=== PATIENT | female | born 1980 | race Caucasian/White ===

== ENCOUNTER 2024-10-12 16:27 | Inpatient (IN) | payer MEDICAID ==
[~2024-10-12] VITALS: Ht 167.6 cm; Wt 62.1 kg
--- NOTE | 2024-10-12 17:08 | ELECTROCARDIOGRAPH REPORT ---
[facility] Test Date: 2024-10-12 Test Time: 16:42:55 Pat Name: KISHOR VARMA Department: EMERGENCY ROOM Room: [place] [address] Gender: F Data Management: : 1980 Requested By: SACHI VALENTIN Order Number: [id number] Reading MD: Dr. Chidi Bonilla Measurements Intervals [place] Rate: 105 P: 72 CO: 126 QRS: 73 QRSD: 77 T: 55 QT: 315 QTc: 417 Interpretive Statements Sinus tachycardia Baseline wander in lead(s) I,II,aVR,aVL,aVF,V2 Electronically Signed On 10-19-2024 21:45:[address] Chidi Bonilla Please click the below link to view image of tracing.
--- NOTE | 2024-10-12 17:14 | Physician Documentation ---
History of Present Illness ~ Chief Complaint: Multiple Medical Complaints Stated Complaint: CELLULITIS Time Seen by MD: 16:40 Primary Medical Doctor: NONE HPI Old female presents to the ED who was a known noncompliant insulin-dependent diabetic from [facility]. She presents after being evaluated for abdominal pain and nausea vomiting likely secondary to her diabetes. She has had left ankle injury times one-week ago and has developed into a diabetic wound with a cellulitis x3 weeks Patient's nausea has been addressed via Compazine and Zofran of pain management has been dress rehab Dilaudid and fentanyl. The patient was started on house Zosyn and vanco and 4 L of normal saline at Tetanus within 5 years?: Yes Medication Reconciliation Allergies: Coded Allergies: aspirin (Verified Allergy, Intermediate, 10/12/24) aluminum (Verified Allergy, Unknown, 10/12/24) Physical Exam Vital Signs: Temperature: 98.1, Source: Oral, Heart Rate: 104, Respiratory Rate: 16, BP: 141/58, Pulse Oximetry: 99, Weight: 62.140 Oxygen Flow Rate: 0 Physical Exam General: Alert, no apparent distress. Gastrointestinal: Soft, nontender, nondistended. Bowels sounds present. Extremities: Normal range of motion, no deformity. Neurologic: Oriented x4. Psychiatric: Normal mood and affect. Skin: Normal color, warm and dry. No edema, no ecchymosis. Progress Results/Orders Results/Orders Orders - ANMOL PAYNE MD ESR (10/12/24 19:52) Medications Received in ER Medications (Trade) Dose Ordered Sig/Breanna Route PRN Reason Start Time Stop Time Status Last Admin Dose Admin Vancomycin HCl 250 ml @ 166 mls/hr Q12H@0700,1900 IV 10/12/24 19:00 10/12/24 19:45 166 MLS/HR (Compazine inj) 10 mg ONCE ONCE IV 10/12/24 18:50 10/12/24 18:51 DC 10/12/24 19:45 10 MG Vital Signs 10/12/24 10/12/24 10/12/24 10/12/24 16:32 16:37 16:37 17:49 Temp 98.1 Pulse 107 104 80 Resp 16 16 16 B/P (MAP) 141/58 141/58 (85) 141/62 (88) Pulse Ox 99 99 99 O2 Flow Rate 0 0 0 10/12/24 10/12/24 10/12/24 18:51 19:00 20:06 Pulse 92 114 Resp 14 14 14 B/P (MAP) 132/63 (86) 142/67 (92) Pulse Ox 99 99 O2 Flow Rate 0 Laboratory Tests Test 10/12/24 16:42 10/12/24 17:28 Glucometer 171 H White Blood Count 14.9 H Red Blood Count 4.51 Hemoglobin 13.8 Hematocrit 41.0 Mean Corpuscular Volume 90.8 Mean Corpuscular Hemoglobin 30.7 Mean Corpuscular Hemoglobin Concent 33.8 Red Cell Distribution Width 14.0 Platelet Count 361 Mean Platelet Volume 8.1 Neutrophils (%) (Auto) 82.6 H Lymphocytes (%) (Auto) 5.5 L Monocytes (%) (Auto) 11.7 Eosinophils (%) (Auto) 0 Basophils (%) (Auto) 0.2 Neutrophils # (Auto) 12.3 H Lymphocytes # (Auto) 0.8 L Monocytes # (Auto) 1.7 H Eosinophils # (Auto) 0.0 Basophils # (Auto) 0.0 CBC Comment Sodium Level 141 Potassium Level 3.5 Chloride Level 107 Carbon Dioxide Level 15.1 L Anion Gap 19 H Blood Urea Nitrogen 8 Creatinine 0.67 Estimated GFR/1.73 m2 > 90 BUN/Creatinine Ratio 11.9 Glucose Level 189 H Lactic Acid Level 1.3 Calcium Level 8.3 L Albumin 2.5 L Procalcitonin 0.07 Chemistry Comments Microbiology Date/Time Source Procedure Growth Status 10/12/24 17:34 Blood Hand Right Blood Culture - Preliminary NEGATIVE (LESS THAN 24 HOURS) Resulted Medical Decision Making Findings this non-Compliant diabetic presents with concerns over osteomyelitis and a worsening infection on her left foot. there may be Clinical correlation between her diabetic foot infection and her ongoing nausea vomiting. Recommending hospitalist admission for evaluation an inpatient IV antibiotics along with potential orthopedic or podiatry evaluation Differential Dx:Considerations: Include: Abscess, Cellulitis, Dressing change, Healing wound, Other Departure Time of Disposition: 20:03 Disposition: 07 LEFT AWOL/ELOPED Admitted to Inpatient Unit: to hospitalist Admission Level of Care: Med/Surg Impression: Primary Impression: Diabetes mellitus Additional Impressions: Uncontrolled diabetes mellitus Ulcer Cellulitis Condition: Stable Education Educated: Patient Educated regarding: diagnosis Additional Comment Additional Comment 7:00 p.m.: Care the patient was transferred to me from nurse practitioner, Sachi Valentin for final disposition for admission. A 10:00 p.m.: Case discussed with the hospitalist/resident, Dr. Agrawal, she will accept the patient for admission. Signature Scribe Signature: t Attestation: The note accurately reflects work and decisions made by me.Sachi Valentin - MARVIN 10/12/24 18:45 SACHI VALENTIN NP October 12, 2024 17:14 ANMOL PAYNE MD October 12, 2024 20:03
[2024-10-12 18:15] LABS: BASOPHILS % (AUTO) 0.2 % (0-1); EOSINOPHILS % (AUTO) 0 % (0-6); HEMOGLOBIN 13.8 g/dl (12.0-16.0); LYMPHOCYTES # (AUTO) 0.8 X10'3 (1.1-4.8); LYMPHOCYTES % (AUTO) 5.5 % (21-51); MEAN CORPUSCULAR HEMOGLOBIN 30.7 PG (27.0-31.0); MEAN CORPUSCULAR HGB CONC 33.8 g/dL (33.0-36.5); MEAN CORPUSCULAR VOLUME 90.8 FL (78-98); MEAN PLATELET VOLUME 8.1 FL (7.4-10.4); MONOCYTES # (AUTO) 1.7 X10'3 (0-0.9); MONOCYTES % (AUTO) 11.7 % (2-12); NEUTROPHILS # (AUTO) 12.3 X10'3 (1.8-7.7); NEUTROPHILS % (AUTO) 82.6 % (42-75); PLATELET COUNT 361 X10'3 (140-440); RED BLOOD COUNT 4.51 X10'6 (4.20-5.60); WHITE BLOOD COUNT 14.9 X10'3 (4.5-11.0)
[2024-10-12 18:29] LABS: ALBUMIN 2.5 G/DL (3.4-5.0); ANION GAP 19 (8-16); BLOOD UREA NITROGEN 8 MG/DL (7-18); BUN/CREATININE RATIO 11.9 (10.0-20.0); CALCIUM 8.3 MG/DL (8.5-10.1); CHLORIDE 107 MMOL/L (99-107); CREATININE 0.67 MG/DL (0.40-0.90); GLUCOSE 189 MG/DL (70-104); POTASSIUM 3.5 MMOL/L (3.5-5.1); SODIUM 141 MMOL/L (135-145); TOTAL CARBON DIOXIDE 15.1 MMOL/L (24-32); eCRCL 101 ML/MIN; eGFR > 90 ML/MIN
[2024-10-12] MEDS: VANCOmycin 1250MG/NS 250ml Bag 250 ML IV SCH (19:45)
[2024-10-12] MEDS: proCHLORperazine 10 MG/2 ml inj IV ONE (19:45)
[2024-10-12 20:26] LABS: C-REACTIVE PROTEIN 31.24 MG/DL (0.0-0.5)
[2024-10-12] MEDS ORDERED: magnesium hydroxide 30ml (MOM) UD suspension PO PRN (20:30)
[2024-10-12] MEDS ORDERED: magnesium sulf-water 4G/100mL 100 ML IV PRN (20:30)
[2024-10-12] MEDS ORDERED: magnesium Cl slow-release 64mg tablet PO PRN (20:30)
[2024-10-12] MEDS ORDERED: potassium Cl 20 mEq SR tablet PO PRN ×2 (20:30)
[2024-10-12] MEDS ORDERED: normal saline 1000ml 1,000 ML IV SCH (20:30)
[2024-10-12] MEDS ORDERED: potassium Cl 40MEQ/1/2NS 520ml 520 ML IV PRN (20:30)
[2024-10-12] MEDS ORDERED: mag hydrox/Alum hydrox/simeth 30ml oral suspension PO PRN (20:30)
[2024-10-12] MEDS ORDERED: acetaminophen 325mg tablet PO PRN (20:30)
[2024-10-12] MEDS ORDERED: magnesium sulf-water 2g/50mL 50 ML IV PRN (20:30)
[2024-10-12] MEDS ORDERED: piperacillin/tazo 3.375gm/50ml 50 ML IV SCH (20:30)
[2024-10-12] MEDS ORDERED: glucagon, human recombinant 1mg kit SUBCUT PRN (20:35)
[2024-10-12] MEDS ORDERED: dextrose 50%-water 50ml dispensing syringe IV PRN ×3 (20:35→22:55)
[2024-10-12] MEDS ORDERED: DEXTROSE 15 GM of carb/4 tabs (each vial/BOTTLE has 4 tablets) PO PRN ×2 (20:35)
[2024-10-12] MEDS ORDERED: insulin glargine (Lantus) pen - multi-dose SQ SCH (21:00)
[2024-10-12] MEDS ORDERED: INSULIN LISPRO 100 UNIT/ML INSULN.PEN MULTI-DOSE SQ SCH (21:00)
[2024-10-12 21:17] LABS: HEMOGLOBIN A1C > 12.0 % (4.5-6.2)
[2024-10-12 21:22] LABS: APTT 33 SECONDS (22-32); INR 1.1 INR; PROTHROMBIN TIME 10.9 SECONDS (9.0-12.0)
[2024-10-12 21:32] LABS: ALBUMIN 2.2 G/DL (3.4-5.0); ANION GAP 20 (8-16); BLOOD UREA NITROGEN 8 MG/DL (7-18); BUN/CREATININE RATIO 11.6 (10.0-20.0); CALCIUM 8.2 MG/DL (8.5-10.1); CHLORIDE 109 MMOL/L (99-107); CREATININE 0.69 MG/DL (0.40-0.90); GLUCOSE 236 MG/DL (70-104); MAGNESIUM 1.5 MG/DL (1.5-2.4); PHOSPHORUS 2.1 MG/DL (2.3-4.5); POTASSIUM 3.6 MMOL/L (3.5-5.1); SODIUM 141 MMOL/L (135-145); eCRCL 98 ML/MIN; eGFR > 90 ML/MIN
[2024-10-12 21:41] LABS: TOTAL CARBON DIOXIDE 12.5 MMOL/L (24-32)
[2024-10-12] MEDS: piperacillin/tazo 4.5gm/100ml 100 ML IV SCH (22:14)
--- NOTE | 2024-10-12 22:25 | HISTORY AND PHYSICAL-Residence ---
History & Physical Providers to CC Resident Creating Document: VIELKA MCCAULEY RES ~ History of Present Illness Primary Medical Doctor: NONE Reason for Admit\Complaint: DKA/left foot cellulitis History of Present Illness The 43-year-old female was transferred from [facility] for higher level of care for the management of left ankle cellulitis. Her friend at the bedside. She mentioned that she started throwing up since last night. Did not notice any blood in it. She also complains of chronic lower abdominal pain. She also has a wound on the lateral surface of left foot. She said she fell about three weeks back and the wound started as a small abrasion which gradually got worse. Now, it is painful, erythematous and also has a necrotic center. Used an antibiotic for the last four days as provided in the ER at [facility]. She is unsure about the name of the medication. She went to [facility] again earlier today after she developed vomitings.. Her bicarb was 11, glucose 376 and urine analysis showed elevated specific gravity and 4+ ketones. She is a known diabetic patient and is not on any medications. She received 10 units insulin regular subQ and 2 L of normal saline boluses at the outside hospital. She was then transferred to [facility] in suspicion of left foot osteomyelitis. Here in the ER, her bicarb 15.1, anion gap 19. She denies any chest pain, shortness of breath, dysuria, constipation or diarrhea. She denies having any PCP and states that she is homeless. Not on any medications at home. Has been smoking one pack of cigarettes per day since she was 18 years and smokes marijuana daily. Allergies: Coded Allergies: aspirin (Verified Allergy, Intermediate, 10/12/24) aluminum (Verified Allergy, Unknown, 10/12/24) Past Medical History Past Medical History Uncontrolled diabetes mellitus Past Surgical History Surgical History Comment Two C-sections, partial bowel resection many years back Past Social History Social History Comment Has been smoking one pack of cigarettes since she was 18 years old. Denied drinking alcohol. Smokes marijuana daily ROS ROS Constitutional: No fever, chills, dizziness, weakness, weight gain or loss Eyes: No pain, erythema, discharge, blurring of vision ENT: No sore throat, epistaxis, tinnitus Cardiovascular: No chest pain, chest pressure, chest discomfort, palpitations, syncope, lower extremity edema, paroxysmal nocturnal dyspnea Respiratory: No shortness of breath, cough, hemoptysis Gastrointestinal: Abdominal pain, nausea and vomiting present. No diarrhea, constipation, hematemesis, bloating, melena or fresh blood Genitourinary: No frequency, urgency, nocturia, hematuria or dysuria Musculoskeletal: No arthralgias or myalgias Integumentary: No change in skin, hair, nails. No swelling, bruising, abrasions Neurologic: No headache, neck pain, numbness or tingling of the extremities, weakness Psychiatric: No delusions, depression, loss of interest in normal activity or change in sleep pattern, hallucinations, suicidal ideations Endocrine: No fatigue, weakness, polydipsia, polyuria, change in appetite, heat or cold intolerance, sweating, dry skin Hematological: No bleeding, petechiae, bruising Allergies: No asthma or urticaria Exam Vitals: Vital Signs Date Time Temp Pulse Resp B/P (MAP) Pulse Ox O2 Delivery O2 Flow Rate FiO2 10/12/24 20:06 114 14 142/67 (92) 99 0 10/12/24 16:32 98.1 General: Alert and oriented x4 HEENT: Normocephalic and atraumatic. Pupils equal round reactive to light and accommodation. Extraocular movements intact. Oral and nasal mucosa moist Neck: Trachea is in midline. No masses or JVD Chest: Bilateral normal breath sounds. No crackles, rhonchi or wheezes Cardiovascular: Tachycardic. Regular rhythm. S1-S2 normal. No rubs or murmurs Abdomen: Tenderness in the hypogastric region. Soft and nondistended. Normoactive bowel sounds Extremities: No cyanosis, clubbing or edema Central Nervous System: No gross sensory or motor deficits. CN II to XII intact Skin: Warm and dry Diagnostic Data Last Recorded Lab Results: 10/12/24 1728 10/12/24 2301 Diagnostic Data: Laboratory Tests Test 10/12/24 20:53 Prothrombin Time 10.9 SECONDS (9.0-12.0) INR International Normalized Ratio 1.1 INR Activated Partial Thromboplast Time 33 SECONDS (22-32) H Coagulation Comments Advance Care Planning Advanced Care plannin - 30 Minutes Additional Plan [id number] DKA Noncompliant with medications for diabetes mellitus Blood glucose level more than 200, elevated anion gap, low bicarb, positive urine ketones in the outside hospital Received 2 L normal saline boluses and 10 units of regular subcu at the outside hospital ER Glucose level more than 200 but less than 250 here at [facility]. Given 5 units of IV regular insulin here. Glucose started to come down close to 200 So, insulin drip not started. Given 2 L ringer lactate boluses Will recheck BMP after the boluses. Will consider starting a bicarb drip if bicarb continues to remain low Recommended bicarb more than 18 Started hyperglycemic/hypoglycemic protocol with Lantus 10 units b.i.d., 5 units of lispro post meal and sliding scale pre meal Start carb controlled diet once anion gap closes Monitor potassium and magnesium and replace as per the protocol Monitor phos level and replace if less than 1.5 Continue maintenance Ringer's lactate at 150 cc/hour Requires diabetic education and nutrition consult Possible sepsis secondary to left foot cellulitis Necrotic center Elevated ESR and CRP MRI left lower extremity ordered to rule out osteomyelitis Started Zosyn 3.375 g IV q.8h and vancomycin Tobacco abuse Strongly recommended to quit tobacco DVT prophylaxis: Lovenox 40 mg subcutaneous daily Vielka Mccauley MD Internal Medicine Resident, PGY 2 Date of Service: October 13, 2024 Billing Provider: BECKA YI MD Common Visit Codes: 58510-[id number] INP/OBS CARE (HIGH) Assessment/Plan Assessment evaluated the patient with the help of residents. discussed the case with them. Reviewed notes by the resident. Agree with their assessments and plans. I also reviewed the patient's records. No additional points at this time VIELKA MCCAULEY RES October 12, 2024 22:25 BECKA YI MD October 13, 2024 04:48
[2024-10-12] MEDS ORDERED: potassium Cl 40MEQ/270ML bag 270 ML IV PRN (22:55)
[2024-10-12] MEDS ORDERED: ringers solution, lacted 1,000 ML IV SCH (22:55)
[2024-10-12] MEDS ORDERED: dextrose 5%-1/2 normal saline 1,000 ML IV SCH (22:55)
[2024-10-12] MEDS ORDERED: Insulin Reg/NS 100units/100mL 100 ML IV SCH (22:55)
[2024-10-12 23:25] LABS: ACETONE SMALL (NEGATIVE)
[2024-10-12 23:27] LABS: ALANINE AMINOTRANSFERASE 10 U/L (12-78); ALBUMIN 2.2 G/DL (3.4-5.0); ALBUMIN/GLOBULIN RATIO 0.5 (1.1-1.5); ALKALINE PHOSPHATASE 81 IU/L (46-116); ANION GAP 19 (8-16); ASPARTATE AMINO TRANSFERASE 11 U/L (10-37); BILIRUBIN,TOTAL 0.8 MG/DL (0.1-1.0); BLOOD UREA NITROGEN 8 MG/DL (7-18); BUN/CREATININE RATIO 11.4 (10.0-20.0); CALCIUM 8.3 MG/DL (8.5-10.1); CHLORIDE 109 MMOL/L (99-107); GLUCOSE 241 MG/DL (70-104); MAGNESIUM 1.5 MG/DL (1.5-2.4); PHOSPHORUS 2.2 MG/DL (2.3-4.5); POTASSIUM 3.8 MMOL/L (3.5-5.1); SODIUM 141 MMOL/L (135-145); TOTAL PROTEIN 6.6 G/DL (6.4-8.2); eCRCL 97 ML/MIN; eGFR > 90 ML/MIN
[2024-10-12 23:31] LABS: TOTAL CARBON DIOXIDE 12.6 MMOL/L (24-32)
[2024-10-12 23:34] LABS: ABG BASE EXCESS -15.1 mmol/L (-2.0-3.0); ABG HCO3 9.6 mmol/L (21.0-28.0); ABG OXYGEN SATURATION 97.8 % (94.0-98.0); ABG PCO2 (T) 20.7 mmHg (32.0-45.0); ABG PH (T) 7.282 (7.350-7.450); ABG PO2 (T) 106.9 mmHg (83.0-108.0); ALLEN'S TEST Modified; FHHb 2.2 % (0.0-5.0); FMetHb 0.3 % (0.0-1.5); FO2Hb 97.5 % (94.0-98.0); PATIENT TEMPERATURE 36.8; TOTAL HEMOGLOBIN 12.7 G/dl (12.0-16.0)
[2024-10-12] MEDS: ringers solution, lacted 1,000 ML IV SCH (23:55)
[2024-10-13] VITALS (8 sets, daily range): BP systolic 102–145; BP diastolic 53–74; PULSE 82–103; RESP 8–23; TEMP 97.4–98.2; O2SAT 96–99
[2024-10-13] MEDS ORDERED: NO HOME MEDS (00:45)
[2024-10-13] MEDS: potassium Cl 40MEQ/1/2NS 520ml 520 ML IV ONE (02:32)
[2024-10-13] MEDS: magnesium sulf-water 2g/50mL 50 ML IV PRN (02:43)
[2024-10-13] MEDS: HYDROcodone/acetaminophen 5mg/325mg tablet PO PRN ×2 (02:45→09:25)
[2024-10-13] MEDS: insulin Lispro (HumaLOG) vial - multi-dose SQ ONE ×2 (02:49→02:55)
[2024-10-13] MEDS: Insulin regular, human (NovoLIN R) inj ONE (02:55)
[2024-10-13] MEDS: insulin glargine (Lantus) pen - multi-dose SQ ONE (02:55)
[2024-10-13] MEDS: insulin regular, human U-100 10ml vial - multi-dose IV ONE ×2 (03:08→05:45)
[2024-10-13] MEDS ORDERED: dextrose 50%-water 50ml dispensing syringe IV PRN ×2 (04:05)
[2024-10-13] MEDS ORDERED: glucagon, human recombinant 1mg kit SUBCUT PRN (04:05)
[2024-10-13] MEDS ORDERED: DEXTROSE 15 GM of carb/4 tabs (each vial/BOTTLE has 4 tablets) PO PRN ×2 (04:05)
[2024-10-13] MEDS: ringers solution, lacted 1,000 ML IV SCH (05:06)
[2024-10-13 05:13] LABS: BASOPHILS % (AUTO) 0.2 % (0-1); EOSINOPHILS % (AUTO) 0.1 % (0-6); HEMATOCRIT 31.7 % (35.0-45.0); HEMOGLOBIN 10.6 g/dl (12.0-16.0); LYMPHOCYTES % (AUTO) 7.2 % (21-51); MEAN CORPUSCULAR HEMOGLOBIN 30.5 PG (27.0-31.0); MEAN CORPUSCULAR HGB CONC 33.5 g/dL (33.0-36.5); MEAN CORPUSCULAR VOLUME 91.1 FL (78-98); MEAN PLATELET VOLUME 7.9 FL (7.4-10.4); MONOCYTES # (AUTO) 1.7 X10'3 (0-0.9); MONOCYTES % (AUTO) 11.9 % (2-12); NEUTROPHILS # (AUTO) 11.5 X10'3 (1.8-7.7); NEUTROPHILS % (AUTO) 80.6 % (42-75); PLATELET COUNT 305 X10'3 (140-440); RED BLOOD COUNT 3.48 X10'6 (4.20-5.60); RED CELL DISTRIBUTION WIDTH 13.9 % (11.5-14.5); WHITE BLOOD COUNT 14.2 X10'3 (4.5-11.0)
[2024-10-13 05:31] LABS: ALANINE AMINOTRANSFERASE 11 U/L (12-78); ALBUMIN 1.8 G/DL (3.4-5.0); ALBUMIN/GLOBULIN RATIO 0.5 (1.1-1.5); ALKALINE PHOSPHATASE 73 IU/L (46-116); ANION GAP 18 (8-16); ASPARTATE AMINO TRANSFERASE 5 U/L (10-37); BILIRUBIN,TOTAL 0.6 MG/DL (0.1-1.0); BLOOD UREA NITROGEN 8 MG/DL (7-18); BUN/CREATININE RATIO 13.3 (10.0-20.0); CALCIUM 7.8 MG/DL (8.5-10.1); CHLORIDE 106 MMOL/L (99-107); CHOL/HDL RATIO 3.3 (0.00-4.99); CHOLESTEROL 141 MG/DL (0-200); GLUCOSE 217 MG/DL (70-104); HDL CHOLESTEROL 43 MG/DL (35-60); LDL CHOLESTEROL 85 MG/DL (50-100); MAGNESIUM 1.5 MG/DL (1.5-2.4); PHOSPHORUS 1.7 MG/DL (2.3-4.5); POTASSIUM 3.2 MMOL/L (3.5-5.1); SODIUM 136 MMOL/L (135-145); TOTAL PROTEIN 5.5 G/DL (6.4-8.2); TRIGLYCERIDES 45 MG/DL (20-135); eCRCL 113 ML/MIN; eGFR > 90 ML/MIN
[2024-10-13 05:40] LABS: TOTAL CARBON DIOXIDE 12.1 MMOL/L (24-32)
[2024-10-13] MEDS: sodium bicarbonate (8.4%) inj. 100 MEQ in dextrose 5%-water 1,000 ML IV SCH (06:56)
[2024-10-13] MEDS: INSULIN LISPRO 100 UNIT/ML INSULN.PEN MULTI-DOSE SQ SCH ×2 (07:00→09:00)
[2024-10-13 07:56] LABS: MAGNESIUM 1.4 MG/DL (1.5-2.4); PHOSPHORUS 1.7 MG/DL (2.3-4.5)
[2024-10-13] MEDS ORDERED: K and/or MAG REPLACEMENT MC SCH (08:00)
[2024-10-13] MEDS: Insulin Reg/NS 100units/100mL 100 ML IV ONE (08:58)
[2024-10-13] MEDS ORDERED: INSULIN LISPRO 100 UNIT/ML INSULN.PEN MULTI-DOSE SQ SCH (09:00)
[2024-10-13 09:54] LABS: ALANINE AMINOTRANSFERASE 14 U/L (12-78); ALBUMIN/GLOBULIN RATIO 0.5 (1.1-1.5); ALKALINE PHOSPHATASE 104 IU/L (46-116); ANION GAP 18 (8-16); ASPARTATE AMINO TRANSFERASE 11 U/L (10-37); BILIRUBIN,TOTAL 0.7 MG/DL (0.1-1.0); BLOOD UREA NITROGEN 7 MG/DL (7-18); BUN/CREATININE RATIO 12.7 (10.0-20.0); CALCIUM 8.1 MG/DL (8.5-10.1); CHLORIDE 103 MMOL/L (99-107); CREATININE 0.55 MG/DL (0.40-0.90); GLUCOSE 239 MG/DL (70-104); MAGNESIUM 1.5 MG/DL (1.5-2.4); PHOSPHORUS 1.8 MG/DL (2.3-4.5); POTASSIUM 3.9 MMOL/L (3.5-5.1); SODIUM 133 MMOL/L (135-145); TOTAL PROTEIN 5.8 G/DL (6.4-8.2); eCRCL 123 ML/MIN; eGFR > 90 ML/MIN
[2024-10-13 10:06] LABS: TOTAL CARBON DIOXIDE 12.2 MMOL/L (24-32)
[2024-10-13] MEDS: dextrose 5%-1/2 normal saline 1,000 ML IV SCH (11:12)
[2024-10-13] MEDS: sodium phosphate inj. 15 MMOL in dextrose 5%-water 250 ML IV PRN (11:21)
[2024-10-13] MEDS: potassium Cl 40MEQ/1/2NS 520ml 520 ML IV PRN (11:33)
[2024-10-13] MEDS: piperacillin/tazo 3.375gm/50ml 50 ML IV SCH (12:05)
--- NOTE | 2024-10-13 13:20 | RADIOLOGY REPORT ---
Indication: wound on left ankle three view requested per Dr Dudley Technique: 4 views left ankle Comparison: None FINDINGS/IMPRESSION: No radiographic evidence for acute fracture or dislocation. Soft tissue edema surrounding the latera l malleolus. Anterior left ankle, dorsal left foot soft tissue edema. Achilles enthesopathy.
[2024-10-13 13:32] LABS: ALANINE AMINOTRANSFERASE 14 U/L (12-78); ALBUMIN 1.8 G/DL (3.4-5.0); ALBUMIN/GLOBULIN RATIO 0.5 (1.1-1.5); ALKALINE PHOSPHATASE 95 IU/L (46-116); ANION GAP 12 (8-16); ASPARTATE AMINO TRANSFERASE 9 U/L (10-37); BILIRUBIN,TOTAL 0.6 MG/DL (0.1-1.0); BLOOD UREA NITROGEN 6 MG/DL (7-18); BUN/CREATININE RATIO 12.2 (10.0-20.0); CALCIUM 7.9 MG/DL (8.5-10.1); CHLORIDE 106 MMOL/L (99-107); CREATININE 0.49 MG/DL (0.40-0.90); GLUCOSE 145 MG/DL (70-104); MAGNESIUM 2.2 MG/DL (1.5-2.4); PHOSPHORUS 1.7 MG/DL (2.3-4.5); POTASSIUM 3.4 MMOL/L (3.5-5.1); SODIUM 134 MMOL/L (135-145); TOTAL CARBON DIOXIDE 16.4 MMOL/L (24-32); TOTAL PROTEIN 5.5 G/DL (6.4-8.2); eCRCL 139 ML/MIN; eGFR > 90 ML/MIN
[2024-10-13] MEDS: insulin glargine (Lantus) pen - multi-dose SQ SCH (15:09)
[2024-10-13] MEDS: ondansetron/PF 4mg/2ml inj IV PRN (17:06)
[2024-10-13] MEDS: normal saline 1000ml 1,000 ML IV SCH (17:27)
--- NOTE | 2024-10-13 18:53 | PROGRESS NOTE ---
Daily Progress Note Providers to CC ~ Antibiotic Timeout Antibiotic Ordered?: Yes Subjective Patient complaining of ankle pain 12/08 Objective Vital Signs Date Time Temp Pulse Resp B/P (MAP) Pulse Ox O2 Delivery O2 Flow Rate FiO2 10/13/24 17:52 16 10/13/24 15:00 97.5 90 131/57 (81) 97 Room Air 10/13/24 08:00 0.0 Result Diagram: 10/13/24 0500 10/13/24 1308 In bed in nonacute distress HEENT normal oral mucosa no JVD Lungs with normal bilateral entry no crackles no wheezing Heart normal rate and rhythm S1-S2 Abdomen is soft nontender bowel sounds are present Extremities no edema plus two pulses Open wound on the external aspect of the left ankle with necrotic tissue Awake and alert motor and sensory intact Coagulation Studies Laboratory Tests Test 10/12/24 20:53 Prothrombin Time 10.9 SECONDS (9.0-12.0) INR International Normalized Ratio 1.1 INR Activated Partial Thromboplast Time 33 SECONDS (22-32) H Coagulation Comments Problem\Assessment\Plan Patient has a left ankle wound covered with necrotic tissue; orthopedic evaluation; on vancomycin and Zosyn; pain management Patient has a history of diabetes mellitus type 1 was found to be in DKA; t reated per protocol this morning with IV fluid supplementation and insulin drip; anion gap has closed and is started on insulin Lantus; Hypokalemia supplement per protocol Anemia monitor 40 minutes of critical care time spent in the care of the patient Date of Service: October 13, 2024 Billing Provider: VIKTORIYA RUBIO MD Common Visit Codes: [id number] CARE 30-74 MIN VIKTORIYA RUBIO MD October 13, 2024 18:53
[2024-10-13] MEDS: enoxaparin 40mg/0.4ml syringe SQ SCH (19:18)
--- NOTE | 2024-10-13 19:52 | CONSULTATION REPORT ---
History of Present Illness Providers to CC ~ Reason for Admit\Admit Dx: DKA/left foot cellulitis Refering MD: NONE History of Present Illness The 43-year-old female was transferred from [facility] for higher level of care for the management of left ankle cellulitis. Nurse at bedside. She mentioned that she started throwing up night before admission. Did not notice any blood in it. She also complains of chronic lower abdominal pain. She also has a wound on the lateral surface of left foot. She said she fell about three weeks back and the wound started as a small abrasion which gradually got worse. Now, it is painful, erythematous and also has a necrotic center. Used an antibiotic for the last four days as provided in the ER at [facility]. She is unsure about the name of the medication. She went to [facility] again earlier today after she developed vomitings.. Her bicarb was 11, glucose 376 and urine analysis showed elevated specific gravity and 4+ ketones. She is a known diabetic patient and is not on any medications. She received 10 units insulin regular subQ and 2 L of normal saline boluses at the outside hospital. She was then transferred to [facility] in suspicion of left foot osteomyelitis. Here in the ER, her bicarb 15.1, anion gap 19. She denies any chest pain, shortness of breath, dysuria, constipation or diarrhea. She denies having any PCP and states that she is homeless. Not on any medications at home. Has been smoking one pack of cigarettes per day since she was 18 years and smokes marijuana daily. Today patient was supposed to get a Left foot MRI but went into DKA per nurse. Allergies: Coded Allergies: aspirin (Verified Allergy, Intermediate, 10/12/24) aluminum (Verified Allergy, Unknown, 10/12/24) Home Medications Home Medications Active Reported No Home Medications (Home Med List) Each Physical Exam Last Vital Signs Recorded: Temperature: 97.5, Source: Oral, Heart Rate: 90, Respiratory Rate: 16, BP: 131/57, Pulse Oximetry: 97, Weight: 62.140 Extremities LLE foot: Lateral dorsal midfoot is globally erythematous and edematous. Blistering and central eschar with boggy fullness under skin with pupuric surroundings. No tunneling, no active purlunt infeciton. Pain with palpation. Xrays: unremarkable MRI pending. Results Diagram Lab Result Diagram: 10/13/24 0500 10/13/24 1308 Assessment/Plan Additional Plan Sickly looking 43F with high clinical suspicion of abcess formation within the left foot. Patient is DM and host of other medical comorbidities with mgmt with medicine team. Patient will need surgical InD with possibel staged delayed closure and washout. Xray reviwed, largely unremarkable, no gas appreciated. - Planning for possible InD tomorrow - NPO after 7am - Pending MRI to aid Surgical guidance. - Rec cont Abx therapy - Cont betadine WTD dressings Patient seen with DESHAWN Edwards DPM October 13, 2024 19:52
[2024-10-13 20:23] LABS: ALANINE AMINOTRANSFERASE 14 U/L (12-78); ALBUMIN 1.8 G/DL (3.4-5.0); ALBUMIN/GLOBULIN RATIO 0.5 (1.1-1.5); ALKALINE PHOSPHATASE 95 IU/L (46-116); ANION GAP 12 (8-16); ASPARTATE AMINO TRANSFERASE 10 U/L (10-37); BILIRUBIN,TOTAL 0.7 MG/DL (0.1-1.0); BLOOD UREA NITROGEN 5 MG/DL (7-18); BUN/CREATININE RATIO 11.6 (10.0-20.0); CALCIUM 7.6 MG/DL (8.5-10.1); CHLORIDE 105 MMOL/L (99-107); CREATININE 0.43 MG/DL (0.40-0.90); GLUCOSE 164 MG/DL (70-104); MAGNESIUM 1.8 MG/DL (1.5-2.4); PHOSPHORUS 1.6 MG/DL (2.3-4.5); POTASSIUM 3.3 MMOL/L (3.5-5.1); SODIUM 134 MMOL/L (135-145); TOTAL CARBON DIOXIDE 17.2 MMOL/L (24-32); TOTAL PROTEIN 5.5 G/DL (6.4-8.2); eCRCL 158 ML/MIN; eGFR > 90 ML/MIN
[2024-10-13 21:18] LABS: ALANINE AMINOTRANSFERASE 15 U/L (12-78); ALBUMIN 1.9 G/DL (3.4-5.0); ALBUMIN/GLOBULIN RATIO 0.5 (1.1-1.5); ALKALINE PHOSPHATASE 102 IU/L (46-116); ANION GAP 13 (8-16); ASPARTATE AMINO TRANSFERASE 10 U/L (10-37); BILIRUBIN,TOTAL 0.8 MG/DL (0.1-1.0); BLOOD UREA NITROGEN 5 MG/DL (7-18); BUN/CREATININE RATIO 11.9 (10.0-20.0); CALCIUM 7.7 MG/DL (8.5-10.1); CHLORIDE 104 MMOL/L (99-107); CREATININE 0.42 MG/DL (0.40-0.90); GLUCOSE 172 MG/DL (70-104); MAGNESIUM 1.8 MG/DL (1.5-2.4); PHOSPHORUS 1.6 MG/DL (2.3-4.5); POTASSIUM 3.3 MMOL/L (3.5-5.1); SODIUM 133 MMOL/L (135-145); TOTAL CARBON DIOXIDE 16.1 MMOL/L (24-32); TOTAL PROTEIN 5.6 G/DL (6.4-8.2); eCRCL 162 ML/MIN; eGFR > 90 ML/MIN
[2024-10-13] MEDS: normal saline 1000ml 1,000 ML IV ONE (23:16)
[2024-10-13 23:31] LABS: ALANINE AMINOTRANSFERASE 16 U/L (12-78); ALBUMIN 1.8 G/DL (3.4-5.0); ALBUMIN/GLOBULIN RATIO 0.5 (1.1-1.5); ALKALINE PHOSPHATASE 98 IU/L (46-116); ANION GAP 14 (8-16); ASPARTATE AMINO TRANSFERASE 7 U/L (10-37); BILIRUBIN,TOTAL 0.7 MG/DL (0.1-1.0); BLOOD UREA NITROGEN 5 MG/DL (7-18); BUN/CREATININE RATIO 11.4 (10.0-20.0); CALCIUM 7.6 MG/DL (8.5-10.1); CHLORIDE 104 MMOL/L (99-107); CREATININE 0.44 MG/DL (0.40-0.90); GLUCOSE 186 MG/DL (70-104); MAGNESIUM 1.9 MG/DL (1.5-2.4); PHOSPHORUS 1.6 MG/DL (2.3-4.5); POTASSIUM 3.5 MMOL/L (3.5-5.1); SODIUM 135 MMOL/L (135-145); TOTAL CARBON DIOXIDE 16.9 MMOL/L (24-32); TOTAL PROTEIN 5.5 G/DL (6.4-8.2); eCRCL 154 ML/MIN; eGFR > 90 ML/MIN
[2024-10-14] MEDS: proCHLORperazine 10 MG/2 ml inj IV ONE (00:34)
[2024-10-14] MEDS: INSULIN LISPRO 100 UNIT/ML INSULN.PEN MULTI-DOSE SQ ONE ×2 (01:32→04:27)
[2024-10-14] MEDS: metoclopramide 5 mg/ml inj IV ONE (01:51)
[2024-10-14 02:00] VITALS: BP 149/97; PULSE 111; RESP 20; TEMP 97.7; O2SAT 98
[2024-10-14 04:04] LABS: ALANINE AMINOTRANSFERASE 20 U/L (12-78); ALBUMIN 2.2 G/DL (3.4-5.0); ALBUMIN/GLOBULIN RATIO 0.5 (1.1-1.5); ALKALINE PHOSPHATASE 126 IU/L (46-116); ANION GAP 18 (8-16); ASPARTATE AMINO TRANSFERASE 17 U/L (10-37); BILIRUBIN,TOTAL 0.9 MG/DL (0.1-1.0); BLOOD UREA NITROGEN 5 MG/DL (7-18); BUN/CREATININE RATIO 10.4 (10.0-20.0); CHLORIDE 103 MMOL/L (99-107); CREATININE 0.48 MG/DL (0.40-0.90); GLUCOSE 216 MG/DL (70-104); MAGNESIUM 1.8 MG/DL (1.5-2.4); POTASSIUM 3.3 MMOL/L (3.5-5.1); SODIUM 135 MMOL/L (135-145); TOTAL PROTEIN 6.6 G/DL (6.4-8.2); eCRCL 141 ML/MIN; eGFR > 90 ML/MIN
[2024-10-14 04:33] LABS: PHOSPHORUS 1.2 MG/DL (2.3-4.5); TOTAL CARBON DIOXIDE 14.4 MMOL/L (24-32)
[2024-10-14] MEDS ORDERED: potassium phosphate inj 30 MMOL in normal saline 250ml IV soln 250 ML IV ONE (04:40)
[2024-10-14] MEDS: sodium phosphate in D5W IVPB 250 ML IV ONE (05:11)
[2024-10-14] MEDS: sodium phosphate inj. 30 MMOL in dextrose 5%-water 250 ML IV PRN (05:18)
[2024-10-14] MEDS: potassium Cl 40MEQ/1/2NS 520ml 520 ML IV ONE (05:21)
[2024-10-14] MEDS: SODIUM PHOSPHATE IN D5W 250 ML IV ONE (05:22)
[2024-10-14] MEDS: sodium bicarbonate 1meq/ml inj 150 ML in sodium chloride 0.45% 1,000 ML IV SCH (05:47)
[2024-10-14 06:00] VITALS: BP 179/96; PULSE 101; RESP 18; TEMP 97.5; O2SAT 99
[2024-10-14] MEDS: hydrALAZINE 20mg/ml inj. IV ONE (06:05)
[2024-10-14] MEDS: VANCOMYCIN LEVEL IV ONE (06:30)
[2024-10-14 06:54] LABS: BASOPHILS % (AUTO) 0.1 % (0-1); EOSINOPHILS % (AUTO) 0 % (0-6); HEMATOCRIT 38.1 % (35.0-45.0); HEMOGLOBIN 13.1 g/dl (12.0-16.0); LYMPHOCYTES # (AUTO) 0.6 X10'3 (1.1-4.8); LYMPHOCYTES % (AUTO) 3.9 % (21-51); MEAN CORPUSCULAR HEMOGLOBIN 30.9 PG (27.0-31.0); MEAN CORPUSCULAR HGB CONC 34.5 g/dL (33.0-36.5); MEAN CORPUSCULAR VOLUME 89.8 FL (78-98); MEAN PLATELET VOLUME 7.8 FL (7.4-10.4); MONOCYTES # (AUTO) 1.1 X10'3 (0-0.9); MONOCYTES % (AUTO) 7.2 % (2-12); NEUTROPHILS # (AUTO) 13.9 X10'3 (1.8-7.7); NEUTROPHILS % (AUTO) 88.8 % (42-75); PLATELET COUNT 400 X10'3 (140-440); RED BLOOD COUNT 4.25 X10'6 (4.20-5.60); RED CELL DISTRIBUTION WIDTH 13.8 % (11.5-14.5); WHITE BLOOD COUNT 15.6 X10'3 (4.5-11.0)
[2024-10-14 07:06] LABS: VANCOMYCIN,TROUGH 7.6 ug/mL (10.0-20.0)
[2024-10-14 07:53] LABS: ALBUMIN 2.2 G/DL (3.4-5.0); ANION GAP 18 (8-16); BLOOD UREA NITROGEN 6 MG/DL (7-18); BUN/CREATININE RATIO 12.5 (10.0-20.0); CALCIUM 8.3 MG/DL (8.5-10.1); CHLORIDE 103 MMOL/L (99-107); CREATININE 0.48 MG/DL (0.40-0.90); GLUCOSE 216 MG/DL (70-104); POTASSIUM 3.2 MMOL/L (3.5-5.1); SODIUM 135 MMOL/L (135-145); eCRCL 141 ML/MIN; eGFR > 90 ML/MIN
[2024-10-14 08:22] LABS: TOTAL CARBON DIOXIDE 14.5 MMOL/L (24-32)
[2024-10-14 11:00] VITALS: BP 159/80; PULSE 112; RESP 27; TEMP 97.3; O2SAT 95
--- NOTE | 2024-10-14 13:16 | RADIOLOGY REPORT ---
EXAM: MR MRI LOWER EXTREMITY LEFT HISTORY: rule out osteomylitis left foot COMPARISON: Radiograph dated 10/13/2024 TECHNIQUE: Multiplanar, multisequence MRI was performed. FINDINGS: An ulcer seen in the lateral aspect of the foot at the level of the calcaneocuboid joint skin thicken ing and subcutaneous edema without underlying cortical erosion or bone marrow edema. Joint spaces are maintained . No joint effusion. The flexor with no evidence of tenosynovitis. The medial lateral li gamentous complexes are intact. The Achilles tendon is intact. Plantar fascia is grossly unremarkable but suboptimally evaluated due to motion degradation. IMPRESSION: 1. Large ulcer in the lateral aspect of the calcaneocuboid joint with extensive surrounding celluliti s without signs of underlying osteomyelitis or septic joint.
[2024-10-14] MEDS: LIDOcaine 1% 30ml preserv. free vial IJ STA (13:17)
--- NOTE | 2024-10-14 13:25 | PROGRESS NOTE ---
Progress Note Ortho Ortho Post Op Day #: Other Follow Up Progress Note patient was seen at bedside again this early afternoon, She is more alert, complaining of vomiting and nausea ROS ROS No new complaints Exam Exam: Alert and Oreinted x4 Exam Comments the left foot appears worse, more erythema, there is more demaracation of the ischemic areas, there is mild fluctuance on palpation, no crepitus on palpation, pulses are palpable Problem/Assessment/Plan Additional Plan Patient was evaluated, the MRI was independently reviewed and discussed with the patient, I did not see bone or joint involvement. I discussed the need for an I&D to the foot and ankle and the possibility of a bedside I&D due to the patient being too unstable for anesthesia. This decision was made with the patient and the risks and benefits were described with the patient. I consulted Wound care as well for application and management of negative pressure wound vac therapy Right foot I&D We received verbal and written consent from the patient today The foot and ankle was sterilized The foot received an ankle anesthetic block with lidocaine, approx 30cc of 1% lidocaine plain and after anesthesia was achieved then we proceeded with the procedure. The foot was prepped and draped in a sterile fashion. After appropriate anesthesia, we then performed an incision and drainage of the wound of the lateral foot. A 15 blade was used to remove the necrotic ischemic skin and we carefully dissected down to the level of subcutaneous and deep fascia tissue. There was a large amount of purulent drainage that we cultured. 3 Wound cultures were then taken and sent for anaerobic and aerobic gram stain and C&S. We then explored multiple regions, there was tracking to a proximal region where an accessory incision was made. After all areas of tracking were explored and all purulent drainage was removed and non viable tissue excised, we then flushed with copious amounts of sterile saline and betadine solution. There was exposed muscle and nerves noted. There was an appearance of healthy wound bed when we were done. A wound vac was applied with 125mmHG negative continuous pressure by wound care. Patient tolerated the procedure well. Wound vac change ordered for POD#5 and then every three days after that. Appreciate recs from wound care team as well. I am leaving town for the week beginning tomorrow, Please reach out to me by my cell phone for further instructions [phone] as needed or call fellow Dr. Ureña for further questions if I don't answer. Results/Orders Result Diagram: 10/14/24 0638 10/14/24 0638 PAMELA VELASCO DPM October 14, 2024 13:25
[2024-10-14 13:45] LABS: ALANINE AMINOTRANSFERASE 22 U/L (12-78); ALBUMIN 2.3 G/DL (3.4-5.0); ALBUMIN/GLOBULIN RATIO 0.4 (1.1-1.5); ALKALINE PHOSPHATASE 143 IU/L (46-116); ANION GAP 21 (8-16); BLOOD UREA NITROGEN 6 MG/DL (7-18); BUN/CREATININE RATIO 11.8 (10.0-20.0); CALCIUM 8.3 MG/DL (8.5-10.1); CHLORIDE 101 MMOL/L (99-107); CREATININE 0.51 MG/DL (0.40-0.90); GLUCOSE 246 MG/DL (70-104); MAGNESIUM 1.9 MG/DL (1.5-2.4); SODIUM 136 MMOL/L (135-145); TOTAL PROTEIN 7.5 G/DL (6.4-8.2); eCRCL 133 ML/MIN; eGFR > 90 ML/MIN
[2024-10-14 13:47] LABS: ASPARTATE AMINO TRANSFERASE 22 U/L (10-37); PHOSPHORUS 2.4 MG/DL (2.3-4.5); POTASSIUM 3.6 MMOL/L (3.5-5.1)
[2024-10-14 13:50] LABS: TOTAL CARBON DIOXIDE 14.3 MMOL/L (24-32)
[2024-10-14 15:00] VITALS: BP 164/95; PULSE 120; RESP 29; TEMP 97.8; O2SAT 98
[2024-10-14] MEDS: Insulin Reg/NS 100units/100mL 100 ML IV SCH (15:08)
[2024-10-14] MEDS: ringers solution, lacted 1,000 ML IV SCH (15:15)
[2024-10-14] MEDS: vancomycin/NS 1 GM ADD-VANTAGE 250 ML IV SCH (15:25)
[2024-10-14 16:01] LABS: ABG BASE EXCESS -10.6 mmol/L (-2.0-3.0); ABG HCO3 11.5 mmol/L (21.0-28.0); ABG OXYGEN SATURATION 97.6 % (94.0-98.0); ABG PCO2 (T) 18.9 mmHg (32.0-45.0); ABG PH (T) 7.401 (7.350-7.450); ABG PO2 (T) 89.9 mmHg (83.0-108.0); ALLEN'S TEST POSITIVE; FCOHb 0.9 % (0.5-1.5); FHHb 2.4 % (0.0-5.0); FMetHb 0.3 % (0.0-1.5); FO2Hb 96.4 % (94.0-98.0); MODE ROOM AIR; TOTAL HEMOGLOBIN 14.5 G/dl (12.0-16.0)
[2024-10-14] MEDS ORDERED: potassium Cl 20 mEq SR tablet PO PRN (16:15)
[2024-10-14 17:19] LABS: MAGNESIUM 1.9 MG/DL (1.5-2.4); PHOSPHORUS 1.5 MG/DL (2.3-4.5)
[2024-10-14 17:31] LABS: POTASSIUM 2.7 MMOL/L (3.5-5.1)
[2024-10-14 18:00] VITALS: BP 147/78; PULSE 112; RESP 15; TEMP 97.7; O2SAT 99
[2024-10-14] MEDS: proMETHazine 25mg tablet PO ONE (18:18)
[2024-10-14] MEDS: GADOTERATE MEGLUMINE 7.5 MMOL/15 ML VIAL IV ONE (18:26)
--- NOTE | 2024-10-14 19:44 | PROGRESS NOTE ---
Daily Progress Note Providers to CC ~ Antibiotic Timeout Antibiotic Ordered?: Yes Subjective Pain is better controlled; she has been nauseous and unable to eat Objective Vital Signs Date Time Temp Pulse Resp B/P (MAP) Pulse Ox O2 Delivery O2 Flow Rate FiO2 10/14/24 15:00 97.8 120 29 164/95 (118) 98 Room Air 10/13/24 20:00 0.0 Result Diagram: 10/14/24 0638 10/14/24 1646 In bed in nonacute distress HEENT normal oral mucosa no JVD Lungs with normal bilateral entry no crackles no wheezing Heart normal rate and rhythm S1-S2 Abdomen is soft nontender bowel sounds are present Extremities no edema plus two pulses Open wound on the external aspect of the left ankle with necrotic tissue Awake and alert motor and sensory intact Coagulation Studies Laboratory Tests Test 10/12/24 20:53 Prothrombin Time 10.9 SECONDS (9.0-12.0) INR International Normalized Ratio 1.1 INR Activated Partial Thromboplast Time 33 SECONDS (22-32) H Coagulation Comments Problem\Assessment\Plan Patient has a left ankle wound covered with necrotic tissue; orthopedic evaluation; on vancomycin and Zosyn; pain management Patient has a history of diabetes mellitus type 1 was found to be in DKA; t reated per protocol this morning with IV fluid supplementation and insulin drip; anion gap has closed and is started on insulin Lantus; 10/14 due to the persistent nausea and vomiting patient reversed into DKA; patient is started back on IV fluids and IV insulin; she will need to stay on IV insulin till her nausea resolves Persistent nausea; symptomatic treatment; gastroparesis? Hypokalemia supplement per protocol Anemia monitor 40 minutes of critical care time spent in the care of the patient Date of Service: October 14, 2024 Billing Provider: VIKTORIYA RUBIO MD Common Visit Codes: [id number] CARE 30-74 MIN VIKTORIYA RUBIO MD October 14, 2024 19:44
[2024-10-14] MEDS: insulin Lispro (HumaLOG) vial - multi-dose SQ ONE (21:51)
[2024-10-14 22:00] VITALS: BP 138/74; PULSE 122; RESP 27; TEMP 97.5; O2SAT 99
[2024-10-14 23:49] LABS: ALANINE AMINOTRANSFERASE 19 U/L (12-78); ALBUMIN 2.1 G/DL (3.4-5.0); ALBUMIN/GLOBULIN RATIO 0.4 (1.1-1.5); ALKALINE PHOSPHATASE 131 IU/L (46-116); ANION GAP 18 (8-16); ASPARTATE AMINO TRANSFERASE 17 U/L (10-37); BILIRUBIN,TOTAL 0.9 MG/DL (0.1-1.0); BLOOD UREA NITROGEN 5 MG/DL (7-18); BUN/CREATININE RATIO 8.6 (10.0-20.0); CALCIUM 8.4 MG/DL (8.5-10.1); CHLORIDE 104 MMOL/L (99-107); CREATININE 0.58 MG/DL (0.40-0.90); GLUCOSE 196 MG/DL (70-104); MAGNESIUM 1.9 MG/DL (1.5-2.4); PHOSPHORUS 1.3 MG/DL (2.3-4.5); SODIUM 138 MMOL/L (135-145); TOTAL CARBON DIOXIDE 15.6 MMOL/L (24-32); TOTAL PROTEIN 6.9 G/DL (6.4-8.2); eCRCL 117 ML/MIN; eGFR > 90 ML/MIN
[2024-10-14 23:53] LABS: POTASSIUM 3.7 MMOL/L (3.5-5.1)
[2024-10-15] VITALS (8 sets, daily range): BP systolic 122–151; BP diastolic 74–86; PULSE 53–119; RESP 15–30; TEMP 97.1–98; O2SAT 90–99
[2024-10-15] MEDS: SODIUM PHOSPHATE IN D5W 250 ML IV ONE (01:01)
[2024-10-15] MEDS: proMETHazine 25mg tablet PO PRN (01:02)
[2024-10-15 05:30] LABS: ALANINE AMINOTRANSFERASE 16 U/L (12-78); ALBUMIN 1.6 G/DL (3.4-5.0); ALBUMIN/GLOBULIN RATIO 0.4 (1.1-1.5); ALKALINE PHOSPHATASE 111 IU/L (46-116); ANION GAP 12 (8-16); ASPARTATE AMINO TRANSFERASE 11 U/L (10-37); BILIRUBIN,TOTAL 0.6 MG/DL (0.1-1.0); BLOOD UREA NITROGEN 4 MG/DL (7-18); BUN/CREATININE RATIO 9.1 (10.0-20.0); CALCIUM 7.6 MG/DL (8.5-10.1); CHLORIDE 107 MMOL/L (99-107); CREATININE 0.44 MG/DL (0.40-0.90); GLUCOSE 172 MG/DL (70-104); MAGNESIUM 1.7 MG/DL (1.5-2.4); SODIUM 139 MMOL/L (135-145); TOTAL CARBON DIOXIDE 19.6 MMOL/L (24-32); TOTAL PROTEIN 5.7 G/DL (6.4-8.2); eCRCL 154 ML/MIN; eGFR > 90 ML/MIN
[2024-10-15 05:34] LABS: POTASSIUM 2.8 MMOL/L (3.5-5.1)
[2024-10-15 05:47] LABS: BASOPHILS # (AUTO) 0.1 X10'3 (0-0.2); BASOPHILS % (AUTO) 0.3 % (0-1); EOSINOPHILS % (AUTO) 0 % (0-6); HEMOGLOBIN 14.2 g/dl (12.0-16.0); LYMPHOCYTES # (AUTO) 0.9 X10'3 (1.1-4.8); MEAN CORPUSCULAR HEMOGLOBIN 29.8 PG (27.0-31.0); MEAN CORPUSCULAR HGB CONC 33.8 g/dL (33.0-36.5); MEAN CORPUSCULAR VOLUME 88.2 FL (78-98); MONOCYTES # (AUTO) 2.2 X10'3 (0-0.9); MONOCYTES % (AUTO) 11.9 % (2-12); NEUTROPHILS % (AUTO) 82.8 % (42-75); PLATELET COUNT 446 X10'3 (140-440); RED BLOOD COUNT 4.77 X10'6 (4.20-5.60); RED CELL DISTRIBUTION WIDTH 14.1 % (11.5-14.5); WHITE BLOOD COUNT 18.1 X10'3 (4.5-11.0)
[2024-10-15] MEDS: ringers solution, lacted 1,000 ML IV SCH (06:39)
[2024-10-15 10:15] LABS: ALANINE AMINOTRANSFERASE 15 U/L (12-78); ALBUMIN 1.7 G/DL (3.4-5.0); ALBUMIN/GLOBULIN RATIO 0.4 (1.1-1.5); ALKALINE PHOSPHATASE 108 IU/L (46-116); ANION GAP 16 (8-16); ASPARTATE AMINO TRANSFERASE 13 U/L (10-37); BILIRUBIN,TOTAL 0.7 MG/DL (0.1-1.0); BLOOD UREA NITROGEN 5 MG/DL (7-18); BUN/CREATININE RATIO 11.9 (10.0-20.0); CALCIUM 7.7 MG/DL (8.5-10.1); CHLORIDE 106 MMOL/L (99-107); CREATININE 0.42 MG/DL (0.40-0.90); GLUCOSE 208 MG/DL (70-104); POTASSIUM 3.9 MMOL/L (3.5-5.1); SODIUM 138 MMOL/L (135-145); TOTAL CARBON DIOXIDE 16.1 MMOL/L (24-32); TOTAL PROTEIN 5.6 G/DL (6.4-8.2); eCRCL 162 ML/MIN; eGFR > 90 ML/MIN
[2024-10-15] MEDS ORDERED: metoclopramide 5 mg/ml inj IV PRN (10:20)
[2024-10-15] MEDS: metoclopramide 5 mg/ml inj IV SCH (10:30)
[2024-10-15 13:08] LABS: MAGNESIUM 1.6 MG/DL (1.5-2.4); PHOSPHORUS 1.5 MG/DL (2.3-4.5); POTASSIUM 3.2 MMOL/L (3.5-5.1)
[2024-10-15 14:27] LABS: ALANINE AMINOTRANSFERASE 16 U/L (12-78); ALBUMIN 1.7 G/DL (3.4-5.0); ALBUMIN/GLOBULIN RATIO 0.4 (1.1-1.5); ALKALINE PHOSPHATASE 106 IU/L (46-116); ANION GAP 13 (8-16); ASPARTATE AMINO TRANSFERASE 11 U/L (10-37); BILIRUBIN,TOTAL 0.7 MG/DL (0.1-1.0); BLOOD UREA NITROGEN 4 MG/DL (7-18); BUN/CREATININE RATIO 9.3 (10.0-20.0); CALCIUM 7.8 MG/DL (8.5-10.1); CHLORIDE 107 MMOL/L (99-107); CREATININE 0.43 MG/DL (0.40-0.90); GLUCOSE 178 MG/DL (70-104); SODIUM 140 MMOL/L (135-145); TOTAL CARBON DIOXIDE 20.4 MMOL/L (24-32); TOTAL PROTEIN 5.7 G/DL (6.4-8.2); eCRCL 158 ML/MIN; eGFR > 90 ML/MIN
[2024-10-15] MEDS: VANCOMYCIN LEVEL IV ONE (14:36)
[2024-10-15] MEDS: dextrose 5%-1/2 normal saline 1,000 ML IV PRN (14:46)
[2024-10-15] MEDS: potassium Cl 20 mEq SR tablet PO PRN (16:05)
[2024-10-15 16:06] LABS: ALANINE AMINOTRANSFERASE 17 U/L (12-78); ALBUMIN 1.7 G/DL (3.4-5.0); ALBUMIN/GLOBULIN RATIO 0.4 (1.1-1.5); ALKALINE PHOSPHATASE 116 IU/L (46-116); ANION GAP 12 (8-16); ASPARTATE AMINO TRANSFERASE 16 U/L (10-37); BILIRUBIN,TOTAL 0.6 MG/DL (0.1-1.0); BLOOD UREA NITROGEN 4 MG/DL (7-18); BUN/CREATININE RATIO 10.3 (10.0-20.0); CALCIUM 7.9 MG/DL (8.5-10.1); CHLORIDE 107 MMOL/L (99-107); CREATININE 0.39 MG/DL (0.40-0.90); GLUCOSE 140 MG/DL (70-104); MAGNESIUM 1.9 MG/DL (1.5-2.4); PHOSPHORUS 1.3 MG/DL (2.3-4.5); SODIUM 139 MMOL/L (135-145); TOTAL CARBON DIOXIDE 19.7 MMOL/L (24-32); TOTAL PROTEIN 5.6 G/DL (6.4-8.2); VANCOMYCIN,TROUGH 5.1 ug/mL (10.0-20.0); eCRCL 174 ML/MIN; eGFR > 90 ML/MIN
[2024-10-15] MEDS: POTASSIUM BICARB 20meq eff tab 20 MEQ TABLET.EFF PO PRN (17:31)
--- NOTE | 2024-10-15 17:55 | PROGRESS NOTE ---
Daily Progress Note Providers to CC ~ Antibiotic Timeout Antibiotic Ordered?: Yes Subjective Nausea improved Objective Vital Signs Date Time Temp Pulse Resp B/P (MAP) Pulse Ox O2 Delivery O2 Flow Rate FiO2 10/15/24 15:31 97.3 102 15 137/85 (102) 99 10/15/24 10:38 Room Air 10/15/24 08:00 0.0 Result Diagram: 10/15/24 0506 10/15/24 1441 In bed in nonacute distress HEENT normal oral mucosa no JVD Lungs with normal bilateral entry no crackles no wheezing Heart normal rate and rhythm S1-S2 Abdomen is soft nontender bowel sounds are present Extremities no edema plus two pulses Open wound on the external aspect of the left ankle with necrotic tissue Awake and alert motor and sensory intact Coagulation Studies Laboratory Tests Test 10/12/24 20:53 Prothrombin Time 10.9 SECONDS (9.0-12.0) INR International Normalized Ratio 1.1 INR Activated Partial Thromboplast Time 33 SECONDS (22-32) H Coagulation Comments Problem\Assessment\Plan Patient has a left ankle wound covered with necrotic tissue; orthopedic evaluation; on vancomycin and Zosyn; pain management 10/15 patient had bedside I and D with Dr. Castano Patient has a history of diabetes mellitus type 1 was found to be in DKA; t reated per protocol this morning with IV fluid supplementation and insulin drip; anion gap has closed and is started on insulin Lantus; 10/14 due to the persistent nausea and vomiting patient reversed into DKA; patient is started back on IV fluids and IV insulin; she will need to stay on IV insulin till her nausea resolves 10/15 continue DKA management per protocol to persistent nausea; nausea seems to be improving and we will do the trial of nutrition; if nutrition tolerated patient can be taken off DKA protocol Persistent nausea; symptomatic treatment; gastroparesis? Hypokalemia supplement per protocol Anemia monitor 40 minutes of critical care time spent in the care of the patient Date of Service: October 15, 2024 Billing Provider: VIKTORIYA RUBIO MD Common Visit Codes: [id number] CARE 30-74 MIN VIKTORIYA RUBIO MD October 15, 2024 17:55
[2024-10-15 19:53] LABS: ALANINE AMINOTRANSFERASE 16 U/L (12-78); ALBUMIN 1.7 G/DL (3.4-5.0); ALBUMIN/GLOBULIN RATIO 0.4 (1.1-1.5); ALKALINE PHOSPHATASE 104 IU/L (46-116); ANION GAP 11 (8-16); ASPARTATE AMINO TRANSFERASE 12 U/L (10-37); BILIRUBIN,TOTAL 0.5 MG/DL (0.1-1.0); BLOOD UREA NITROGEN 4 MG/DL (7-18); BUN/CREATININE RATIO 9.5 (10.0-20.0); CALCIUM 7.6 MG/DL (8.5-10.1); CHLORIDE 106 MMOL/L (99-107); CREATININE 0.42 MG/DL (0.40-0.90); GLUCOSE 165 MG/DL (70-104); MAGNESIUM 2.2 MG/DL (1.5-2.4); PHOSPHORUS 1.4 MG/DL (2.3-4.5); SODIUM 138 MMOL/L (135-145); TOTAL CARBON DIOXIDE 20.8 MMOL/L (24-32); TOTAL PROTEIN 5.6 G/DL (6.4-8.2); eCRCL 162 ML/MIN; eGFR > 90 ML/MIN
[2024-10-15] MEDS: INSULIN LISPRO 100 UNIT/ML INSULN.PEN MULTI-DOSE SQ ONE (21:43)
[2024-10-15] MEDS: VANCOMYCIN/H2O 1.5g/300mL PB 300 ML IV SCH (23:37)
[2024-10-15 23:46] LABS: ALANINE AMINOTRANSFERASE 15 U/L (12-78); ALBUMIN 1.7 G/DL (3.4-5.0); ALBUMIN/GLOBULIN RATIO 0.4 (1.1-1.5); ALKALINE PHOSPHATASE 97 IU/L (46-116); ANION GAP 12 (8-16); ASPARTATE AMINO TRANSFERASE 8 U/L (10-37); BILIRUBIN,TOTAL 0.6 MG/DL (0.1-1.0); BLOOD UREA NITROGEN 3 MG/DL (7-18); BUN/CREATININE RATIO 7.9 (10.0-20.0); CALCIUM 7.5 MG/DL (8.5-10.1); CHLORIDE 105 MMOL/L (99-107); CREATININE 0.38 MG/DL (0.40-0.90); GLUCOSE 216 MG/DL (70-104); MAGNESIUM 1.9 MG/DL (1.5-2.4); PHOSPHORUS 1.9 MG/DL (2.3-4.5); POTASSIUM 3.7 MMOL/L (3.5-5.1); SODIUM 136 MMOL/L (135-145); TOTAL CARBON DIOXIDE 18.9 MMOL/L (24-32); TOTAL PROTEIN 5.5 G/DL (6.4-8.2); eCRCL 179 ML/MIN; eGFR > 90 ML/MIN
[2024-10-16] VITALS (8 sets, daily range): BP systolic 124–143; BP diastolic 72–91; PULSE 110–117; RESP 14–18; TEMP 97.3–98.2; O2SAT 95–98
[2024-10-16] MEDS: HYDROmorphone inj. 0.5 MG/0.5 ML DISP.SYRIN IV PRN (01:23)
[2024-10-16 04:21] LABS: BASOPHILS % (AUTO) 0.2 % (0-1); EOSINOPHILS % (AUTO) 0 % (0-6); HEMATOCRIT 38.2 % (35.0-45.0); HEMOGLOBIN 12.8 g/dl (12.0-16.0); LYMPHOCYTES # (AUTO) 1.2 X10'3 (1.1-4.8); LYMPHOCYTES % (AUTO) 6.1 % (21-51); MEAN CORPUSCULAR HGB CONC 33.6 g/dL (33.0-36.5); MEAN CORPUSCULAR VOLUME 89.1 FL (78-98); MEAN PLATELET VOLUME 7.4 FL (7.4-10.4); MONOCYTES # (AUTO) 2.2 X10'3 (0-0.9); MONOCYTES % (AUTO) 10.8 % (2-12); NEUTROPHILS # (AUTO) 16.6 X10'3 (1.8-7.7); NEUTROPHILS % (AUTO) 82.9 % (42-75); PLATELET COUNT 480 X10'3 (140-440); RED BLOOD COUNT 4.28 X10'6 (4.20-5.60); RED CELL DISTRIBUTION WIDTH 14.2 % (11.5-14.5)
[2024-10-16 04:36] LABS: ALANINE AMINOTRANSFERASE 16 U/L (12-78); ALBUMIN 1.7 G/DL (3.4-5.0); ALBUMIN/GLOBULIN RATIO 0.4 (1.1-1.5); ALKALINE PHOSPHATASE 99 IU/L (46-116); ANION GAP 8 (8-16); ASPARTATE AMINO TRANSFERASE 9 U/L (10-37); BILIRUBIN,TOTAL 0.5 MG/DL (0.1-1.0); BLOOD UREA NITROGEN 3 MG/DL (7-18); BUN/CREATININE RATIO 6.8 (10.0-20.0); CALCIUM 7.3 MG/DL (8.5-10.1); CHLORIDE 105 MMOL/L (99-107); CREATININE 0.44 MG/DL (0.40-0.90); GLUCOSE 207 MG/DL (70-104); MAGNESIUM 1.9 MG/DL (1.5-2.4); POTASSIUM 3.5 MMOL/L (3.5-5.1); SODIUM 135 MMOL/L (135-145); TOTAL CARBON DIOXIDE 21.8 MMOL/L (24-32); TOTAL PROTEIN 5.5 G/DL (6.4-8.2); eCRCL 154 ML/MIN; eGFR > 90 ML/MIN
[2024-10-16] MEDS: POTASSIUM BICARB 20meq eff tab 20 MEQ TABLET.EFF PO ONE (07:11)
[2024-10-16] MEDS: insulin glargine (Lantus) pen - multi-dose SQ ONE (09:11)
[2024-10-16] MEDS ORDERED: dextrose 50%-water 50ml dispensing syringe IV PRN ×2 (09:25)
[2024-10-16] MEDS ORDERED: DEXTROSE 15 GM of carb/4 tabs (each vial/BOTTLE has 4 tablets) PO PRN ×2 (09:25)
[2024-10-16] MEDS ORDERED: glucagon, human recombinant 1mg kit SUBCUT PRN (09:25)
[2024-10-16] MEDS: INSULIN LISPRO 100 UNIT/ML INSULN.PEN MULTI-DOSE SQ SCH (12:00)
--- NOTE | 2024-10-16 17:15 | PROGRESS NOTE ---
Daily Progress Note Providers to CC ~ Antibiotic Timeout Antibiotic Ordered?: Yes Subjective Patient states her pain is controlled; feeling improved and nausea has resolved, able to eat Objective Vital Signs Date Time Temp Pulse Resp B/P (MAP) Pulse Ox O2 Delivery O2 Flow Rate FiO2 10/16/24 15:30 98.0 111 15 124/72 (89) 96 10/16/24 10:56 Room Air 10/15/24 08:00 0.0 Result Diagram: 10/16/24 0410 10/16/24 0410 In bed in nonacute distress HEENT normal oral mucosa no JVD Lungs with normal bilateral entry no crackles no wheezing Heart normal rate and rhythm S1-S2 Abdomen is soft nontender bowel sounds are present Extremities no edema plus two pulses Open wound on the external aspect of the left ankle with necrotic tissue Awake and alert motor and sensory intact Coagulation Studies Laboratory Tests Test 10/12/24 20:53 Prothrombin Time 10.9 SECONDS (9.0-12.0) INR International Normalized Ratio 1.1 INR Activated Partial Thromboplast Time 33 SECONDS (22-32) H Coagulation Comments Problem\Assessment\Plan Patient has a left ankle wound covered with necrotic tissue; orthopedic evaluation; on vancomycin and Zosyn; pain management 10/15 patient had bedside I and D with Dr. Castano Patient has a history of diabetes mellitus type 1 was found to be in DKA; t reated per protocol this morning with IV fluid supplementation and insulin drip; anion gap has closed and is started on insulin Lantus; 10/14 due to the persistent nausea and vomiting patient reversed into DKA; patient is started back on IV fluids and IV insulin; she will need to stay on IV insulin till her nausea resolves 10/15 continue DKA management per protocol to persistent nausea; nausea seems to be improving and we will do the trial of nutrition; if nutrition tolerated patient can be taken off DKA protocol 10/16 off DKA protocol and start insulin Lantus Persistent nausea; symptomatic treatment; gastroparesis? 10/16 improved significantly Hypokalemia supplement per protocol 10/16 resolved Anemia monitor Worsening leukocytosis despite antibiotics; no diarrhea Date of Service: October 16, 2024 Billing Provider: VIKTORIYA RUBIO MD Common Visit Codes: [id number] INP/OBS CARE(HIGH) VIKTORIYA RUBIO MD October 16, 2024 17:15
[2024-10-16] MEDS: JUVEN Smoothie Arginine/Glut./Ca2+Bmb (Juven 19.3pkt) 240ml cup PO SCH (17:46)
[2024-10-16] MEDS: lactose-reduced food (Ensure Enlive) - 237ml bottle PO SCH (18:05)
[2024-10-16] MEDS: VANCOMYCIN LEVEL IV ONE (23:28)
[2024-10-17 02:00] VITALS: BP 145/80; PULSE 113; RESP 14; TEMP 97.8; O2SAT 97
[2024-10-17 07:27] LABS: BASOPHILS % (AUTO) 0.1 % (0-1); EOSINOPHILS % (AUTO) 0.3 % (0-6); HEMATOCRIT 36.5 % (35.0-45.0); HEMOGLOBIN 12.2 g/dl (12.0-16.0); LYMPHOCYTES # (AUTO) 1.5 X10'3 (1.1-4.8); LYMPHOCYTES % (AUTO) 9.5 % (21-51); MEAN CORPUSCULAR HEMOGLOBIN 29.9 PG (27.0-31.0); MEAN CORPUSCULAR HGB CONC 33.6 g/dL (33.0-36.5); MEAN CORPUSCULAR VOLUME 88.9 FL (78-98); MEAN PLATELET VOLUME 7.6 FL (7.4-10.4); MONOCYTES # (AUTO) 1.7 X10'3 (0-0.9); MONOCYTES % (AUTO) 10.4 % (2-12); NEUTROPHILS # (AUTO) 12.8 X10'3 (1.8-7.7); NEUTROPHILS % (AUTO) 79.7 % (42-75); PLATELET COUNT 457 X10'3 (140-440)
[2024-10-17 07:30] VITALS: BP 123/74; PULSE 115; RESP 17; RESP 25; TEMP 97.5; O2SAT 100; O2SAT 96
[2024-10-17 07:51] LABS: ALANINE AMINOTRANSFERASE 11 U/L (12-78); ALBUMIN 1.5 G/DL (3.4-5.0); ALKALINE PHOSPHATASE 86 IU/L (46-116); ANION GAP 10 (8-16); ASPARTATE AMINO TRANSFERASE 7 U/L (10-37); BILIRUBIN,TOTAL 0.8 MG/DL (0.1-1.0); BLOOD UREA NITROGEN 2 MG/DL (7-18); BUN/CREATININE RATIO 5.6 (10.0-20.0); CALCIUM 7.5 MG/DL (8.5-10.1); CHLORIDE 103 MMOL/L (99-107); CREATININE 0.36 MG/DL (0.40-0.90); GLUCOSE 173 MG/DL (70-104); MAGNESIUM 1.7 MG/DL (1.5-2.4); PHOSPHORUS 1.9 MG/DL (2.3-4.5); POTASSIUM 3.2 MMOL/L (3.5-5.1); SODIUM 136 MMOL/L (135-145); TOTAL CARBON DIOXIDE 22.8 MMOL/L (24-32); eCRCL 189 ML/MIN; eGFR > 90 ML/MIN
[2024-10-17 08:04] LABS: ALBUMIN/GLOBULIN RATIO 0.4 (1.1-1.5); TOTAL PROTEIN 4.9 G/DL (6.4-8.2)
[2024-10-17] MEDS: VANCOMYCIN 1,500MG in normal saline IV soln 300 ML IV SCH (09:00)
[2024-10-17 11:00] VITALS: BP 139/79; PULSE 110; RESP 25; TEMP 97.5; O2SAT 100
[2024-10-17 15:15] VITALS: BP 133/71; PULSE 110; RESP 18; TEMP 98.8; O2SAT 96
--- NOTE | 2024-10-17 17:25 | PROGRESS NOTE ---
Daily Progress Note Providers to CC ~ Antibiotic Timeout Antibiotic Ordered?: Yes Subjective Some nausea this morning and last night; pain is controlled Objective Vital Signs Date Time Temp Pulse Resp B/P (MAP) Pulse Ox O2 Delivery O2 Flow Rate FiO2 10/17/24 15:15 98.8 110 18 133/71 (91) 96 Room Air 10/15/24 08:00 0.0 Result Diagram: 10/17/24 0650 10/17/24 0650 In bed in nonacute distress HEENT normal oral mucosa no JVD Lungs with normal bilateral entry no crackles no wheezing Heart normal rate and rhythm S1-S2 Abdomen is soft nontender bowel sounds are present Extremities no edema plus two pulses Open wound on the external aspect of the left ankle with necrotic tissue Awake and alert motor and sensory intact Coagulation Studies Laboratory Tests Test 10/12/24 20:53 Prothrombin Time 10.9 SECONDS (9.0-12.0) INR International Normalized Ratio 1.1 INR Activated Partial Thromboplast Time 33 SECONDS (22-32) H Coagulation Comments Problem\Assessment\Plan Patient has a left ankle wound covered with necrotic tissue; orthopedic evaluation; on vancomycin and Zosyn; pain management 10/15 patient had bedside I and D with Dr. Castano 10/17 wound culture with a strep agalactiae; switch antibiotic to ceftriaxone Patient has a history of diabetes mellitus type 1 was found to be in DKA; t reated per protocol this morning with IV fluid supplementation and insulin drip; anion gap has closed and is started on insulin Lantus; 10/14 due to the persistent nausea and vomiting patient reversed into DKA; patient is started back on IV fluids and IV insulin; she will need to stay on IV insulin till her nausea resolves 10/15 continue DKA management per protocol to persistent nausea; nausea seems to be improving and we will do the trial of nutrition; if nutrition tolerated patient can be taken off DKA protocol 10/16 off DKA protocol and start insulin Lantus Persistent nausea; symptomatic treatment; gastroparesis? 10/16 improved significantly Hypokalemia supplement per protocol 10/16 resolved Anemia monitor Discharge disposition possible rehab DVT prophylaxis Lovenox Date of Service: October 17, 2024 Billing Provider: VIKTORIYA RUBIO MD Common Visit Codes: [id number] INP/OBS CARE(HIGH) VIKTORIYA RUBIO MD October 17, 2024 17:25
[2024-10-17] MEDS: CefTRIAXone/D5W-Rocephin 1gm 50 ML IV SCH (18:11)
[2024-10-17 18:30] VITALS: BP 141/81; PULSE 111; RESP 16; TEMP 98.5; O2SAT 96
[2024-10-17] MEDS: enoxaparin 40mg/0.4ml syringe SUBCUT SCH (20:08)
[2024-10-17 22:00] VITALS: BP 125/76; PULSE 105; RESP 14; TEMP 99; O2SAT 95
[2024-10-18 06:00] VITALS: BP 118/59; PULSE 107; RESP 16; TEMP 98.5; O2SAT 96
[2024-10-18 08:00] VITALS: RESP 16; O2SAT 96
[2024-10-18 09:23] LABS: BASOPHILS % (AUTO) 0.2 % (0-1); EOSINOPHILS # (AUTO) 0.1 X10'3 (0-0.9); EOSINOPHILS % (AUTO) 0.7 % (0-6); HEMATOCRIT 35.5 % (35.0-45.0); HEMOGLOBIN 11.9 g/dl (12.0-16.0); LYMPHOCYTES # (AUTO) 1.3 X10'3 (1.1-4.8); LYMPHOCYTES % (AUTO) 10.9 % (21-51); MEAN CORPUSCULAR HEMOGLOBIN 29.7 PG (27.0-31.0); MEAN CORPUSCULAR HGB CONC 33.4 g/dL (33.0-36.5); MEAN PLATELET VOLUME 7.4 FL (7.4-10.4); MONOCYTES # (AUTO) 1.4 X10'3 (0-0.9); MONOCYTES % (AUTO) 12.1 % (2-12); NEUTROPHILS # (AUTO) 8.8 X10'3 (1.8-7.7); NEUTROPHILS % (AUTO) 76.1 % (42-75); PLATELET COUNT 425 X10'3 (140-440); RED BLOOD COUNT 3.99 X10'6 (4.20-5.60); RED CELL DISTRIBUTION WIDTH 14.2 % (11.5-14.5); WHITE BLOOD COUNT 11.6 X10'3 (4.5-11.0)
[2024-10-18 11:00] VITALS: BP 147/86; PULSE 101; RESP 16; TEMP 98.4; O2SAT 96
--- NOTE | 2024-10-18 16:11 | PROGRESS NOTE ---
Daily Progress Note Providers to CC ~ Antibiotic Timeout Antibiotic Ordered?: Yes Subjective Had some vomiting again this morning Objective Vital Signs Date Time Temp Pulse Resp B/P (MAP) Pulse Ox O2 Delivery O2 Flow Rate FiO2 10/18/24 11:00 98.4 101 16 147/86 (106) 96 Room Air 10/18/24 08:00 0.0 Result Diagram: 10/18/24 0846 10/17/24 0650 In bed in nonacute distress HEENT normal oral mucosa no JVD Lungs with normal bilateral entry no crackles no wheezing Heart normal rate and rhythm S1-S2 Abdomen is soft nontender bowel sounds are present Extremities no edema plus two pulses Open wound on the external aspect of the left ankle with necrotic tissue Awake and alert motor and sensory intact Coagulation Studies Laboratory Tests Test 10/12/24 20:53 Prothrombin Time 10.9 SECONDS (9.0-12.0) INR International Normalized Ratio 1.1 INR Activated Partial Thromboplast Time 33 SECONDS (22-32) H Coagulation Comments Problem\Assessment\Plan Patient has a left ankle wound covered with necrotic tissue; orthopedic evaluation; on vancomycin and Zosyn; pain management 10/15 patient had bedside I and D with Dr. Castano 10/17 wound culture with a strep agalactiae; switch antibiotic to ceftriaxone Patient has a history of diabetes mellitus type 1 was found to be in DKA; t reated per protocol this morning with IV fluid supplementation and insulin drip; anion gap has closed and is started on insulin Lantus; 10/14 due to the persistent nausea and vomiting patient reversed into DKA; patient is started back on IV fluids and IV insulin; she will need to stay on IV insulin till her nausea resolves 10/15 continue DKA management per protocol to persistent nausea; nausea seems to be improving and we will do the trial of nutrition; if nutrition tolerated patient can be taken off DKA protocol 10/16 off DKA protocol and start insulin Lantus 10/18 patient received 10 units of Lantus yesterday and since yesterday her sugars have been below 200s; that combined with the fact that she is still having some vomiting I will be watching her without Lantus for now until sugars worsened Persistent nausea; symptomatic treatment; gastroparesis? 10/16 improved significantly Hypokalemia supplement per protocol 10/16 resolved Anemia monitor Discharge disposition possible rehab, case managing working on it DVT prophylaxis Lovenox Date of Service: October 18, 2024 Billing Provider: VIKTORIYA RUBIO MD Common Visit Codes: [id number] INP/OBS CARE(HIGH) VIKTORIYA RUBIO MD October 18, 2024 16:11
[2024-10-18 18:00] VITALS: BP 146/84; PULSE 101; RESP 18; TEMP 97.9; O2SAT 96
[2024-10-18 22:00] VITALS: BP 110/63; PULSE 105; RESP 13; TEMP 98.5; O2SAT 95
[2024-10-19 06:00] VITALS: BP 157/82; PULSE 102; RESP 20; TEMP 98.3; O2SAT 96
[2024-10-19 08:00] VITALS: RESP 18; O2SAT 98
[2024-10-19 09:28] LABS: BASOPHILS % (AUTO) 0.4 % (0-1); EOSINOPHILS # (AUTO) 0.1 X10'3 (0-0.9); EOSINOPHILS % (AUTO) 0.9 % (0-6); HEMATOCRIT 35.8 % (35.0-45.0); HEMOGLOBIN 11.9 g/dl (12.0-16.0); LYMPHOCYTES # (AUTO) 1.2 X10'3 (1.1-4.8); LYMPHOCYTES % (AUTO) 10.3 % (21-51); MEAN CORPUSCULAR HEMOGLOBIN 29.6 PG (27.0-31.0); MEAN CORPUSCULAR HGB CONC 33.2 g/dL (33.0-36.5); MEAN CORPUSCULAR VOLUME 89.3 FL (78-98); MEAN PLATELET VOLUME 7.4 FL (7.4-10.4); MONOCYTES # (AUTO) 1.5 X10'3 (0-0.9); MONOCYTES % (AUTO) 12.4 % (2-12); NEUTROPHILS # (AUTO) 9.1 X10'3 (1.8-7.7); PLATELET COUNT 452 X10'3 (140-440); RED BLOOD COUNT 4.01 X10'6 (4.20-5.60); RED CELL DISTRIBUTION WIDTH 14.2 % (11.5-14.5); WHITE BLOOD COUNT 11.9 X10'3 (4.5-11.0)
[2024-10-19 10:00] VITALS: BP 136/84; PULSE 103; RESP 16; TEMP 97.9; O2SAT 95
--- NOTE | 2024-10-19 16:05 | PROGRESS NOTE ---
Daily Progress Note Providers to CC ~ Antibiotic Timeout Antibiotic Ordered?: Yes Subjective No changes; had wound care done this morning Objective Vital Signs Date Time Temp Pulse Resp B/P (MAP) Pulse Ox O2 Delivery O2 Flow Rate FiO2 10/19/24 13:34 18 10/19/24 10:00 97.9 103 136/84 (101) 95 Room Air 10/19/24 08:00 0.0 Result Diagram: 10/19/24 0902 10/17/24 0650 In bed in nonacute distress HEENT normal oral mucosa no JVD Lungs with normal bilateral entry no crackles no wheezing Heart normal rate and rhythm S1-S2 Abdomen is soft nontender bowel sounds are present Extremities no edema plus two pulses Open wound on the external aspect of the left ankle with necrotic tissue Awake and alert motor and sensory intact Coagulation Studies Laboratory Tests Test 10/12/24 20:53 Prothrombin Time 10.9 SECONDS (9.0-12.0) INR International Normalized Ratio 1.1 INR Activated Partial Thromboplast Time 33 SECONDS (22-32) H Coagulation Comments Problem\Assessment\Plan Patient has a left ankle wound covered with necrotic tissue; orthopedic evaluation; on vancomycin and Zosyn; pain management 10/15 patient had bedside I and D with Dr. Zambrano 10/17 wound culture with a strep agalactiae; switch antibiotic to ceftriaxone Patient has a history of diabetes mellitus type 1 was found to be in DKA; t reated per protocol this morning with IV fluid supplementation and insulin drip; anion gap has closed and is started on insulin Lantus; 10/14 due to the persistent nausea and vomiting patient reversed into DKA; patient is started back on IV fluids and IV insulin; she will need to stay on IV insulin till her nausea resolves 10/15 continue DKA management per protocol to persistent nausea; nausea seems to be improving and we will do the trial of nutrition; if nutrition tolerated patient can be taken off DKA protocol 10/16 off DKA protocol and start insulin Lantus 10/18 patient received 10 units of Lantus yesterday and since yesterday her sugars have been below 200s; that combined with the fact that she is still having some vomiting I will be watching her without Lantus for now until sugars worsened 10/19 patient is requiring minimal coverage and she has not received insulin Lantus in a couple of days Persistent nausea; symptomatic treatment; gastroparesis? 10/16 improved significantly 10/19 resolved Hypokalemia supplement per protocol 10/16 resolved Anemia monitor Discharge disposition possible rehab, case managing working on it DVT prophylaxis Lovenox Date of Service: October 19, 2024 Billing Provider: VIKTORIYA RUBIO MD Common Visit Codes: [id number] INP/OBS CARE(HIGH) VIKTORIYA RUBIO MD October 19, 2024 16:05
[2024-10-19 18:00] VITALS: BP 119/65; PULSE 94; RESP 18; TEMP 97.8; O2SAT 97
[2024-10-19 20:00] VITALS: RESP 18; O2SAT 96
[2024-10-19 22:00] VITALS: BP 139/78; PULSE 105; RESP 16; TEMP 98.7; O2SAT 95
[2024-10-20 06:00] VITALS: BP 128/70; PULSE 95; RESP 14; TEMP 98.9; O2SAT 94
[2024-10-20 10:00] VITALS: BP 148/79; PULSE 99; RESP 17; TEMP 98.3; O2SAT 93
[2024-10-20 12:07] VITALS: RESP 18; O2SAT 93
[2024-10-20 18:00] VITALS: BP 152/81; PULSE 97; RESP 17; TEMP 98.4; O2SAT 95
[2024-10-20 20:00] VITALS: RESP 18; O2SAT 96
--- NOTE | 2024-10-20 20:13 | PROGRESS NOTE ---
Daily Progress Note Providers to CC ~ Antibiotic Timeout Antibiotic Ordered?: Yes Subjective The patient has been accepted to [facility] however we are awaiting insurance authorization. I spoke with Dr. Shaquille stephenson to evaluate the patient to see if we can start the patient on oral antibiotics Objective Vital Signs Date Time Temp Pulse Resp B/P (MAP) Pulse Ox O2 Delivery O2 Flow Rate FiO2 10/20/24 12:07 18 93 Room Air 10/20/24 10:00 98.3 99 148/79 (102) 10/19/24 20:00 0.0 Result Diagram: 10/19/24 0902 10/17/24 0650 Gen. No acute distress alert and oriented 4 Lungs clear to ascultation bilaterally, no wheezes rales or rhonchi appreciated Heart normal sinus rhythm no murmurs rubs or clicks noted Abdomen soft nontender bowel sounds are normoactive Lower extremities no clubbing cyanosis, nor edema appreciated bilaterally, dressing is in place on the left Coagulation Studies Laboratory Tests Test 10/12/24 20:53 Prothrombin Time 10.9 SECONDS (9.0-12.0) INR International Normalized Ratio 1.1 INR Activated Partial Thromboplast Time 33 SECONDS (22-32) H Coagulation Comments Problem\Assessment\Plan # left ankle wound covered with necrotic tissue on vancomycin and Zosyn; pain management 10/15 patient had bedside I and D with Dr. Zambrano 10/17 wound culture with a strep agalactiae; switch antibiotic to ceftriaxone 10/[address] Stephenson infectious disease physician's recommendations # history of diabetes mellitus type 1 was found to be in DKA; treated per protocol this morning with IV fluid supplementation and insulin drip; anion gap has closed and is started on insulin Lantus; 10/14 due to the persistent nausea and vomiting patient reversed into DKA; patient is started back on IV fluids and IV insulin; she will need to stay on IV insulin till her nausea resolves 10/15 continue DKA management per protocol to persistent nausea; nausea seems to be improving and we will do the trial of nutrition; if nutrition tolerated patient can be taken off DKA protocol 10/16 off DKA protocol and start insulin Lantus 10/18 patient received 10 units of Lantus yesterday and since yesterday her sugars have been below 200s; that combined with the fact that she is still having some vomiting I will be watching her without Lantus for now until sugars worsened 10/19 patient is requiring minimal coverage and she has not received insulin Lantus in a couple of days 10/20 continues to be significantly improved # Persistent nausea; symptomatic treatment; gastroparesis? 10/16 improved significantly 10/19 resolved #Hypokalemia supplement per protocol 10/16 resolved #Anemia monitor Discharge disposition possible rehab, case managing working on it DVT prophylaxis Lovenox Date of Service: October 20, 2024 Billing Provider: JOAQUÍN MCCARTHY DO Common Visit Codes: [id number] INP/OBS CARE(HIGH) JOAQUÍN MCCARTHY DO October 20, 2024 20:13
[2024-10-20] MEDS: metroNIDAZOLE 500mg tablet PO SCH (20:47)
--- NOTE | 2024-10-20 21:07 | CONSULTATION ---
DATE OF CONSULTATION: 10/20/2024 DICTATING PHYSICIAN: Shaquille Avednaño MD REASON FOR CONSULTATION: I am seeing the patient at the request of Dr. Hubbard for evaluation of a severe left diabetic foot infection. HISTORY OF PRESENT ILLNESS: The patient is a 44-year-old female with uncontrolled type 1 diabetes mellitus who was admitted to this facility back on 10/12 with worsening infection of her left foot. She was apparently transferred here from [facility]. She states that she sustained a soft tissue injury at the left ankle/foot a few weeks ago. She eventually went on to develop a dark wound with surrounding redness. She apparently was placed on an oral antibiotic but was not improving. She states that she recently came out to [place] from [place]. She is essentially homeless. She came to stay with a friend. She states that she has not been able to take care of her diabetes given that the insurance she had in [place] was not accepted by anyone. The left foot was debrided at the bedside by Dr. Zambrano. She did have exposed muscle but no exposed bone. She is currently receiving ceftriaxone. PAST MEDICAL HISTORY: Type 1 diabetes mellitus. PAST SURGICAL HISTORY: section. ALLERGIES: ASPIRIN. MEDICATIONS: * Ceftriaxone 1 g daily. * Lovenox. * Metoclopramide. FAMILY HISTORY: Noncontributory. SOCIAL HISTORY: She is homeless. She has family back in [place]. I believe she is staying with a friend up in [place]. She does smoke tobacco and marijuana. PHYSICAL EXAMINATION: VITAL SIGNS: She is afebrile with stable vital signs. GENERAL: She is a pleasant, middle-aged female lying in bed looking stable. HEENT: Sclerae anicteric. Mouth is clear. NECK: Supple. LUNGS: Clear to auscultation bilaterally. HEART: Regular rate and rhythm. ABDOMEN: Soft, nontender, and nondistended. EXTREMITIES: No edema. She has good distal pulses. At the left foot, she has an open wound at the dorsal aspect extending laterally. She does have some slough at the wound base along with some granulation tissue. She had quite a bit of drainage on the bandage. Bandage was changed. LABORATORY DATA: Her white blood cell count is 11,900 down from 20,000, hemoglobin is around 12, platelets are 450,000, creatinine 0.36. Hemoglobin A1c is greater than 12%. Wound culture did grow group B Streptococcus that is resistant to clindamycin. This was isolated on all three cultures. Anaerobes were not isolated. Blood cultures are negative. She did have an MRI of the left foot that showed evidence of cellulitis without clear evidence of osteomyelitis. IMPRESSION: * Severe left diabetic foot infection due to group B Streptococcus status post debridement. She does not have clear evidence of osteomyelitis. * Uncontrolled diabetes mellitus type 1 with hemoglobin A1c greater than 12%. RECOMMENDATIONS: She will continue with ceftriaxone, although her dose will be increased to 2 g daily. I am going to put her on some anaerobic coverage with metronidazole at 500 mg twice daily. Given the severity of her infection, I would recommend another three weeks' of treatment until she has demonstrated significant improvement with her wound. I suppose she could be transitioned to oral therapy at a later point. I believe she is getting Medi-Clay in place so that hopefully she can get better control of her diabetes. She will need appropriate wound care moving forward. I will continue to follow her closely. I thank you for allowing me to participate in her care. Shaquille Avendaño MD TID: [id number] RECEIPT: [id number] OSIEL/HASMUKH
[2024-10-20 22:00] VITALS: BP 139/62; PULSE 101; RESP 20; TEMP 98.2; O2SAT 96
[2024-10-21 04:24] LABS: BASOPHILS % (AUTO) 0.4 % (0-1); EOSINOPHILS # (AUTO) 0.2 X10'3 (0-0.9); EOSINOPHILS % (AUTO) 2.6 % (0-6); HEMATOCRIT 34.3 % (35.0-45.0); HEMOGLOBIN 11.7 g/dl (12.0-16.0); LYMPHOCYTES # (AUTO) 1.2 X10'3 (1.1-4.8); LYMPHOCYTES % (AUTO) 12.8 % (21-51); MEAN CORPUSCULAR HEMOGLOBIN 30.3 PG (27.0-31.0); MEAN CORPUSCULAR HGB CONC 34.1 g/dL (33.0-36.5); MEAN CORPUSCULAR VOLUME 88.8 FL (78-98); MEAN PLATELET VOLUME 7.2 FL (7.4-10.4); MONOCYTES # (AUTO) 1.4 X10'3 (0-0.9); MONOCYTES % (AUTO) 15.2 % (2-12); NEUTROPHILS # (AUTO) 6.2 X10'3 (1.8-7.7); PLATELET COUNT 430 X10'3 (140-440); RED BLOOD COUNT 3.86 X10'6 (4.20-5.60); RED CELL DISTRIBUTION WIDTH 13.9 % (11.5-14.5)
[2024-10-21 04:50] LABS: ALANINE AMINOTRANSFERASE 11 U/L (12-78); ALBUMIN 1.7 G/DL (3.4-5.0); ALBUMIN/GLOBULIN RATIO 0.5 (1.1-1.5); ALKALINE PHOSPHATASE 85 IU/L (46-116); ANION GAP 8 (8-16); ASPARTATE AMINO TRANSFERASE 9 U/L (10-37); BILIRUBIN,TOTAL 0.4 MG/DL (0.1-1.0); BLOOD UREA NITROGEN 1 MG/DL (7-18); BUN/CREATININE RATIO 2.6 (10.0-20.0); CALCIUM 8.2 MG/DL (8.5-10.1); CHLORIDE 98 MMOL/L (99-107); CREATININE 0.38 MG/DL (0.40-0.90); GLUCOSE 225 MG/DL (70-104); SODIUM 138 MMOL/L (135-145); TOTAL CARBON DIOXIDE 32.5 MMOL/L (24-32); TOTAL PROTEIN 5.4 G/DL (6.4-8.2); eCRCL 177 ML/MIN; eGFR > 90 ML/MIN
[2024-10-21 05:11] LABS: POTASSIUM 2.5 MMOL/L (3.5-5.1)
[2024-10-21 06:00] VITALS: BP 131/66; PULSE 96; RESP 16; TEMP 97.5; TEMP 99.5; O2SAT 95
[2024-10-21] MEDS ORDERED: potassium Cl 20 mEq SR tablet PO PRN (08:10)
[2024-10-21] MEDS ORDERED: potassium Cl 40MEQ/1/2NS 520ml 520 ML IV PRN (08:10)
[2024-10-21] MEDS ORDERED: magnesium sulf-water 4G/100mL 100 ML IV PRN (08:10)
[2024-10-21] MEDS ORDERED: magnesium sulf-water 2g/50mL 50 ML IV PRN (08:10)
[2024-10-21] MEDS: CefTRIAXone 2gm/D5W 50ml BAG 50 ML IV SCH (08:12)
[2024-10-21 08:29] LABS: MAGNESIUM 1.6 MG/DL (1.5-2.4)
[2024-10-21 10:00] VITALS: BP 162/80; PULSE 101; RESP 16; TEMP 98; O2SAT 96
[2024-10-21 11:02] VITALS: RESP 16; O2SAT 95
[2024-10-21 18:00] VITALS: BP 128/91; PULSE 102; RESP 18; TEMP 98.6; O2SAT 98
[2024-10-21] MEDS: potassium Cl 20 mEq SR tablet PO PRN (19:36)
[2024-10-21 20:00] VITALS: RESP 18; O2SAT 96
[2024-10-21] MEDS: K and/or MAG REPLACEMENT MC SCH (20:00)
--- NOTE | 2024-10-21 21:57 | PROGRESS NOTE ---
Daily Progress Note Providers to CC ~ Antibiotic Timeout Antibiotic Ordered?: Yes Subjective Patient was evaluated by Dr. Shaquille stephenson infectious disease physician who recommended an additional 3 weeks of IV Rocephin 2 g daily and metronidazole 500 mg b.i.d. Objective Vital Signs Date Time Temp Pulse Resp B/P (MAP) Pulse Ox O2 Delivery O2 Flow Rate FiO2 10/21/24 11:02 16 95 Room Air 10/21/24 10:00 98.0 101 162/80 (107) 10/20/24 20:00 0.0 Result Diagram: 10/21/24 0354 10/21/24 0354 Gen. No acute distress alert and oriented 4 Lungs clear to ascultation bilaterally, no wheezes rales or rhonchi appreciated Heart normal sinus rhythm no murmurs rubs or clicks noted Abdomen soft nontender bowel sounds are normoactive Lower extremities no clubbing cyanosis, nor edema appreciated bilaterally, dressing is in place on the left Coagulation Studies Laboratory Tests Test 10/12/24 20:53 Prothrombin Time 10.9 SECONDS (9.0-12.0) INR International Normalized Ratio 1.1 INR Activated Partial Thromboplast Time 33 SECONDS (22-32) H Coagulation Comments Problem\Assessment\Plan # left ankle wound covered with necrotic tissue on vancomycin and Zosyn; pain management 10/15 patient had bedside I and D with Dr. Zambrano 10/17 wound culture with a strep agalactiae; switch antibiotic to ceftriaxone 10/[address] Stephenson infectious disease physician's recommendations 10/21 Dr. Stephenson ordered 2 g of Rocephin IV daily and metronidazole 500 mg b.i.d. with a recommendation of an additional three weeks of therapy- a midline IV was placed today # history of diabetes mellitus type 1 was found to be in DKA; treated per protocol this morning with IV fluid supplementation and insulin drip; anion gap has closed and is started on insulin Lantus; 10/14 due to the persistent nausea and vomiting patient reversed into DKA; patient is started back on IV fluids and IV insulin; she will need to stay on IV insulin till her nausea resolves 10/15 continue DKA management per protocol to persistent nausea; nausea seems to be improving and we will do the trial of nutrition; if nutrition tolerated patient can be taken off DKA protocol 10/16 off DKA protocol and start insulin Lantus 10/18 patient received 10 units of Lantus yesterday and since yesterday her sugars have been below 200s; that combined with the fact that she is still having some vomiting I will be watching her without Lantus for now until sugars worsened 10/19 patient is requiring minimal coverage and she has not received insulin Lantus in a couple of days 10/20 continues to be significantly improved # Persistent nausea; symptomatic treatment; gastroparesis? 10/16 improved significantly 10/19 resolved #Hypokalemia supplement per protocol 10/21 and a potassium replacement protocol #Anemia monitor Discharge disposition possible rehab, case managing working on it DVT prophylaxis Lovenox Date of Service: October 21, 2024 Billing Provider: JOAQUÍN MCCARTHY DO Common Visit Codes: [id number] INP/OBS CARE(HIGH) JOAQUÍN MCCARTHY DO October 21, 2024 21:57
[2024-10-21 22:00] VITALS: BP 158/73; PULSE 103; RESP 16; TEMP 98.4; O2SAT 97
[2024-10-22 06:28] LABS: BASOPHILS % (AUTO) 0.5 % (0-1); EOSINOPHILS # (AUTO) 0.2 X10'3 (0-0.9); EOSINOPHILS % (AUTO) 2.8 % (0-6); HEMATOCRIT 31.9 % (35.0-45.0); HEMOGLOBIN 10.9 g/dl (12.0-16.0); LYMPHOCYTES # (AUTO) 1.4 X10'3 (1.1-4.8); LYMPHOCYTES % (AUTO) 17.3 % (21-51); MEAN CORPUSCULAR HEMOGLOBIN 30.2 PG (27.0-31.0); MEAN CORPUSCULAR VOLUME 88.7 FL (78-98); MEAN PLATELET VOLUME 7.2 FL (7.4-10.4); MONOCYTES # (AUTO) 1.3 X10'3 (0-0.9); MONOCYTES % (AUTO) 16.8 % (2-12); NEUTROPHILS # (AUTO) 4.9 X10'3 (1.8-7.7); NEUTROPHILS % (AUTO) 62.6 % (42-75); PLATELET COUNT 393 X10'3 (140-440); RED CELL DISTRIBUTION WIDTH 13.7 % (11.5-14.5); WHITE BLOOD COUNT 7.8 X10'3 (4.5-11.0)
[2024-10-22 06:38] VITALS: BP 138/75; PULSE 99; RESP 18; TEMP 100.6; O2SAT 96
[2024-10-22 06:45] LABS: ALANINE AMINOTRANSFERASE 11 U/L (12-78); ALBUMIN 1.6 G/DL (3.4-5.0); ALBUMIN/GLOBULIN RATIO 0.5 (1.1-1.5); ALKALINE PHOSPHATASE 75 IU/L (46-116); ANION GAP 4 (8-16); ASPARTATE AMINO TRANSFERASE 6 U/L (10-37); BILIRUBIN,TOTAL 0.4 MG/DL (0.1-1.0); BLOOD UREA NITROGEN 2 MG/DL (7-18); BUN/CREATININE RATIO 4.5 (10.0-20.0); CHLORIDE 101 MMOL/L (99-107); CREATININE 0.44 MG/DL (0.40-0.90); GLUCOSE 226 MG/DL (70-104); MAGNESIUM 1.6 MG/DL (1.5-2.4); SODIUM 139 MMOL/L (135-145); TOTAL CARBON DIOXIDE 33.6 MMOL/L (24-32); TOTAL PROTEIN 5.1 G/DL (6.4-8.2); eCRCL 153 ML/MIN; eGFR > 90 ML/MIN
[2024-10-22 06:50] LABS: POTASSIUM 2.8 MMOL/L (3.5-5.1)
[2024-10-22 08:00] VITALS: RESP 16; O2SAT 96
[2024-10-22 10:00] VITALS: BP 143/67; PULSE 95; RESP 12; TEMP 99; O2SAT 97
[2024-10-22] MEDS: INSULIN LISPRO 100 UNIT/ML INSULN.PEN MULTI-DOSE SQ SCH (10:20)
[2024-10-22 18:00] VITALS: BP 165/91; PULSE 98; RESP 17; TEMP 98.1; O2SAT 95
[2024-10-22 20:00] VITALS: RESP 17; O2SAT 98
[2024-10-22] MEDS: insulin glargine (Lantus) pen - multi-dose SQ SCH (20:54)
--- NOTE | 2024-10-22 21:18 | PROGRESS NOTE ---
Daily Progress Note Providers to CC ~ Antibiotic Timeout Antibiotic Ordered?: Yes Subjective The patient was febrile this morning with a temperature of 100.6 however is no longer febrile she also has significant hypokalemia with a potassium is being replaced and her blood sugars are uncontrolled I started the patient on Lantus 10 units at night and 5 units of lispro after meals. The patient has no other complaints or concerns today Objective Vital Signs Date Time Temp Pulse Resp B/P (MAP) Pulse Ox O2 Delivery O2 Flow Rate FiO2 10/22/24 10:00 99.0 95 12 143/67 (92) 97 Room Air 10/22/24 08:00 0.0 Result Diagram: 10/22/24 0550 10/22/24 0550 Gen. No acute distress alert and oriented 4 Lungs clear to ascultation bilaterally, no wheezes rales or rhonchi appreciated Heart normal sinus rhythm no murmurs rubs or clicks noted Abdomen soft nontender bowel sounds are normoactive Lower extremities no clubbing cyanosis, nor edema appreciated bilaterally, dressing is in place on the left Coagulation Studies Laboratory Tests Test 10/12/24 20:53 Prothrombin Time 10.9 SECONDS (9.0-12.0) INR International Normalized Ratio 1.1 INR Activated Partial Thromboplast Time 33 SECONDS (22-32) H Coagulation Comments Problem\Assessment\Plan # left ankle wound covered with necrotic tissue on vancomycin and Zosyn; pain management 10/15 patient had bedside I and D with Dr. Zambrano 10/17 wound culture with a strep agalactiae; switch antibiotic to ceftriaxone 10/[address] Avendaño infectious disease physician's recommendations 10/21 Dr. Avendaño ordered 2 g of Rocephin IV daily and metronidazole 500 mg b.i.d. with a recommendation of an additional three weeks of therapy- a midline IV was placed today # history of diabetes mellitus type 1 was found to be in DKA; treated per protocol this morning with IV fluid supplementation and insulin drip; anion gap has closed and is started on insulin Lantus; 10/14 due to the persistent nausea and vomiting patient reversed into DKA; patient is started back on IV fluids and IV insulin; she will need to stay on IV insulin till her nausea resolves 10/15 continue DKA management per protocol to persistent nausea; nausea seems to be improving and we will do the trial of nutrition; if nutrition tolerated patient can be taken off DKA protocol 10/16 off DKA protocol and start insulin Lantus 10/18 patient received 10 units of Lantus yesterday and since yesterday her sugars have been below 200s; that combined with the fact that she is still having some vomiting I will be watching her without Lantus for now until sugars worsened 10/19 patient is requiring minimal coverage and she has not received insulin Lantus in a couple of days 10/20 continues to be significantly improved 10/21 blood sugars are up trending started Lantus 10 units q.h.s. and 5 units of lispro after meals # Persistent nausea; symptomatic treatment; gastroparesis? 10/16 improved significantly 10/19 resolved #Hypokalemia supplement per protocol 10/21 and a potassium replacement protocol 10/22 on the potassium replacement protocol #Anemia monitor Discharge disposition possible rehab, case managing working on it DVT prophylaxis Lovenox Date of Service: October 22, 2024 Billing Provider: JOAQUÍN MCCARTHY DO Common Visit Codes: [id number] INP/OBS CARE(HIGH) JOAQUÍN MCCARTHY DO October 22, 2024 21:18
[2024-10-22 22:00] VITALS: BP 123/72; PULSE 101; RESP 16; TEMP 98.6; O2SAT 97
[2024-10-23 05:53] LABS: BASOPHILS # (AUTO) 0.1 X10'3 (0-0.2); BASOPHILS % (AUTO) 0.7 % (0-1); EOSINOPHILS # (AUTO) 0.2 X10'3 (0-0.9); EOSINOPHILS % (AUTO) 2.6 % (0-6); HEMATOCRIT 31.5 % (35.0-45.0); HEMOGLOBIN 10.8 g/dl (12.0-16.0); LYMPHOCYTES # (AUTO) 1.7 X10'3 (1.1-4.8); LYMPHOCYTES % (AUTO) 20.6 % (21-51); MEAN CORPUSCULAR HEMOGLOBIN 30.4 PG (27.0-31.0); MEAN CORPUSCULAR HGB CONC 34.1 g/dL (33.0-36.5); MEAN CORPUSCULAR VOLUME 88.9 FL (78-98); MEAN PLATELET VOLUME 7.2 FL (7.4-10.4); MONOCYTES # (AUTO) 1.4 X10'3 (0-0.9); MONOCYTES % (AUTO) 16.6 % (2-12); NEUTROPHILS # (AUTO) 4.9 X10'3 (1.8-7.7); NEUTROPHILS % (AUTO) 59.5 % (42-75); PLATELET COUNT 411 X10'3 (140-440); RED BLOOD COUNT 3.54 X10'6 (4.20-5.60); RED CELL DISTRIBUTION WIDTH 13.7 % (11.5-14.5); WHITE BLOOD COUNT 8.2 X10'3 (4.5-11.0)
[2024-10-23 06:20] LABS: ALANINE AMINOTRANSFERASE 10 U/L (12-78); ALBUMIN 1.8 G/DL (3.4-5.0); ALBUMIN/GLOBULIN RATIO 0.5 (1.1-1.5); ALKALINE PHOSPHATASE 74 IU/L (46-116); ANION GAP 5 (8-16); ASPARTATE AMINO TRANSFERASE 15 U/L (10-37); BILIRUBIN,TOTAL 0.4 MG/DL (0.1-1.0); BLOOD UREA NITROGEN 1 MG/DL (7-18); CALCIUM 7.8 MG/DL (8.5-10.1); CHLORIDE 101 MMOL/L (99-107); GLUCOSE 238 MG/DL (70-104); MAGNESIUM 1.7 MG/DL (1.5-2.4); POTASSIUM 3.8 MMOL/L (3.5-5.1); SODIUM 138 MMOL/L (135-145); TOTAL CARBON DIOXIDE 31.9 MMOL/L (24-32); TOTAL PROTEIN 5.4 G/DL (6.4-8.2); eCRCL 134 ML/MIN; eGFR > 90 ML/MIN
[2024-10-23 06:38] VITALS: BP 168/90; PULSE 101; RESP 16; TEMP 98.5; O2SAT 97
[2024-10-23 08:00] VITALS: RESP 16
[2024-10-23 11:00] VITALS: BP 142/79; PULSE 99; RESP 18; TEMP 97.4; O2SAT 96
[2024-10-23 18:00] VITALS: BP 144/71; PULSE 102; RESP 18; TEMP 98.1; O2SAT 95
[2024-10-23 20:00] VITALS: RESP 18; O2SAT 97
--- NOTE | 2024-10-23 21:02 | PROGRESS NOTE ---
Daily Progress Note Providers to CC ~ Antibiotic Timeout Antibiotic Ordered?: Yes Subjective The patient remains afebrile today her blood sugars are under better control. The patient has only question a request is when she is being transferred to rehab Objective Vital Signs Date Time Temp Pulse Resp B/P (MAP) Pulse Ox O2 Delivery O2 Flow Rate FiO2 10/23/24 11:00 97.4 99 18 142/79 (100) 96 Room Air 10/23/24 08:00 0.0 Result Diagram: 10/23/2451710/23/24517 Gen. No acute distress alert and oriented 4 Lungs clear to ascultation bilaterally, no wheezes rales or rhonchi appreciated Heart normal sinus rhythm no murmurs rubs or clicks noted Abdomen soft nontender bowel sounds are normoactive Lower extremities no clubbing cyanosis, nor edema appreciated bilaterally, dressing is in place on the left Coagulation Studies Laboratory Tests Test 10/12/24 20:53 Prothrombin Time 10.9 SECONDS (9.0-12.0) INR International Normalized Ratio 1.1 INR Activated Partial Thromboplast Time 33 SECONDS (22-32) H Coagulation Comments Problem\Assessment\Plan # left ankle wound covered with necrotic tissue on vancomycin and Zosyn; pain management 10/15 patient had bedside I and D with Dr. Zambrano 10/17 wound culture with a strep agalactiae; switch antibiotic to ceftriaxone 10/[address] Avendaño infectious disease physician's recommendations 10/21 Dr. Avendaño ordered 2 g of Rocephin IV daily and metronidazole 500 mg b.i.d. with a recommendation of an additional three weeks of therapy- a midline IV was placed today # history of diabetes mellitus type 1 was found to be in DKA; treated per protocol this morning with IV fluid supplementation and insulin drip; anion gap has closed and is started on insulin Lantus; 10/14 due to the persistent nausea and vomiting patient reversed into DKA; patient is started back on IV fluids and IV insulin; she will need to stay on IV insulin till her nausea resolves 10/15 continue DKA management per protocol to persistent nausea; nausea seems to be improving and we will do the trial of nutrition; if nutrition tolerated patient can be taken off DKA protocol 10/16 off DKA protocol and start insulin Lantus 10/18 patient received 10 units of Lantus yesterday and since yesterday her sugars have been below 200s; that combined with the fact that she is still having some vomiting I will be watching her without Lantus for now until sugars worsened 10/19 patient is requiring minimal coverage and she has not received insulin Lantus in a couple of days 10/20 continues to be significantly improved 10/21 blood sugars are up trending started Lantus 10 units q.h.s. and 5 units of lispro after meals 10/22 blood sugar control is improved # Persistent nausea; symptomatic treatment; gastroparesis? 10/16 improved significantly 10/19 resolved #Hypokalemia supplement per protocol 10/21 and a potassium replacement protocol 10/22 on the potassium replacement protocol #Anemia monitor Remained stable Discharge disposition possible rehab, case managing working on it DVT prophylaxis Lovenox Date of Service: October 23, 2024 Billing Provider: JOAQUÍN MCCARTHY DO Common Visit Codes: [id number] INP/OBS CARE(HIGH) JOAQUÍN MCCARTHY DO October 23, 2024 21:02
[2024-10-23 22:00] VITALS: BP 179/73; PULSE 102; RESP 16; TEMP 98.6; O2SAT 97
--- NOTE | 2024-10-23 22:22 | PROGRESS NOTE ---
Progress Note Ortho Ortho Post Op Day #: Other ROS ROS No new complaints Exam Exam Comments LLE Foot; Lateral dorusm of foot has dermal layer void from prior bedside InD measuring around 3x4x0.5cm to healthy noninfected SubQ. 50% thin fibrotic layer, was covered with medihoney and alginate cover. There is a smaller adjacent area of skin necrosis/eschar from prior pathologic skin from underlying abcsess. appears stable at this time. Pt can range foot and ankle Dreesed with medihoney and alginate dressing. Problem/Assessment/Plan Additional Plan 44F s/p 9 days from extensive bedside InD with sharp excision of nonviable dermal tissue creating void as described. Wound is stable and noninfectious. Cx from index procedure grew group B Streptococcus. Pt would benefit from Continued [place] therapy with a collogan base (powder, michelle, etc) and leave on for 5 days at time. If pt to get DC will have team change to outpt [place].\ - Order for nursing to place [place] dressing on base followed by [place] - Change [place] to outpt [place] upon DC. - Patient to see Dr Zambrano 1 week upon DC. - To cont following pt. Results/Orders Result Diagram: 10/23/24 0518 10/23/24 0518 DESHAWN CLEMENTE DPKrista October 23, 2024 22:22
[2024-10-24] VITALS (7 sets, daily range): BP systolic 132–169; BP diastolic 63–85; PULSE 99–105; RESP 14–18; TEMP 97.7–98.9; O2SAT 97–98
[2024-10-24 15:08] LABS: BASOPHILS # (AUTO) 0.1 X10'3 (0-0.2); BASOPHILS % (AUTO) 0.6 % (0-1); EOSINOPHILS # (AUTO) 0.2 X10'3 (0-0.9); EOSINOPHILS % (AUTO) 2.6 % (0-6); HEMATOCRIT 32.7 % (35.0-45.0); HEMOGLOBIN 11.3 g/dl (12.0-16.0); LYMPHOCYTES # (AUTO) 1.1 X10'3 (1.1-4.8); LYMPHOCYTES % (AUTO) 12.8 % (21-51); MEAN CORPUSCULAR HEMOGLOBIN 30.7 PG (27.0-31.0); MEAN CORPUSCULAR HGB CONC 34.7 g/dL (33.0-36.5); MEAN CORPUSCULAR VOLUME 88.5 FL (78-98); MEAN PLATELET VOLUME 6.8 FL (7.4-10.4); MONOCYTES # (AUTO) 1.2 X10'3 (0-0.9); MONOCYTES % (AUTO) 13.8 % (2-12); NEUTROPHILS # (AUTO) 6.3 X10'3 (1.8-7.7); NEUTROPHILS % (AUTO) 70.2 % (42-75); PLATELET COUNT 431 X10'3 (140-440); RED BLOOD COUNT 3.69 X10'6 (4.20-5.60); RED CELL DISTRIBUTION WIDTH 14.1 % (11.5-14.5)
[2024-10-24 15:28] LABS: ALANINE AMINOTRANSFERASE 20 U/L (12-78); ALBUMIN 1.9 G/DL (3.4-5.0); ALBUMIN/GLOBULIN RATIO 0.5 (1.1-1.5); ALKALINE PHOSPHATASE 79 IU/L (46-116); ANION GAP 3 (8-16); ASPARTATE AMINO TRANSFERASE 22 U/L (10-37); BILIRUBIN,TOTAL 0.2 MG/DL (0.1-1.0); BLOOD UREA NITROGEN 1 MG/DL (7-18); BUN/CREATININE RATIO 1.7 (10.0-20.0); CALCIUM 8.1 MG/DL (8.5-10.1); CHLORIDE 104 MMOL/L (99-107); CREATININE 0.59 MG/DL (0.40-0.90); GLUCOSE 144 MG/DL (70-104); MAGNESIUM 1.7 MG/DL (1.5-2.4); POTASSIUM 3.3 MMOL/L (3.5-5.1); SODIUM 139 MMOL/L (135-145); TOTAL CARBON DIOXIDE 32.1 MMOL/L (24-32); TOTAL PROTEIN 5.6 G/DL (6.4-8.2); eCRCL 114 ML/MIN; eGFR > 90 ML/MIN
[2024-10-24] MEDS ORDERED: potassium Cl 40MEQ/1/2NS 520ml 520 ML IV PRN ×2 (17:20→17:25)
[2024-10-24] MEDS ORDERED: magnesium sulf-water 2g/50mL 50 ML IV PRN ×2 (17:20→17:25)
[2024-10-24] MEDS ORDERED: potassium Cl 20 mEq SR tablet PO PRN ×2 (17:20)
[2024-10-24] MEDS ORDERED: magnesium sulf-water 4G/100mL 100 ML IV PRN ×2 (17:20→17:25)
[2024-10-24] MEDS ORDERED: magnesium Cl slow-release 64mg tablet PO PRN (17:20)
[2024-10-24] MEDS: potassium Cl 20 mEq SR tablet PO PRN (18:47)
[2024-10-24] MEDS: K and/or MAG REPLACEMENT MC SCH (20:00)
--- NOTE | 2024-10-24 22:26 | PROGRESS NOTE ---
Daily Progress Note Providers to CC ~ Antibiotic Timeout Antibiotic Ordered?: Yes Subjective The patient is resting comfortably in bed and has no acute complaints - that has mode no change in approval of transferred to a SNF for antibiotics or outpatient infusion Objective Vital Signs Date Time Temp Pulse Resp B/P (MAP) Pulse Ox O2 Delivery O2 Flow Rate FiO2 10/24/24 11:00 98.0 99 17 145/76 (99) 97 Room Air 10/24/24 08:00 0.0 Result Diagram: 10/24/24 1455 10/24/24 1455 Gen. No acute distress alert and oriented 4 Lungs clear to ascultation bilaterally, no wheezes rales or rhonchi appreciated Heart normal sinus rhythm no murmurs rubs or clicks noted Abdomen soft nontender bowel sounds are normoactive Lower extremities no clubbing cyanosis, nor edema appreciated bilaterally, dressing is in place on the left Coagulation Studies Laboratory Tests Test 10/12/24 20:53 Prothrombin Time 10.9 SECONDS (9.0-12.0) INR International Normalized Ratio 1.1 INR Activated Partial Thromboplast Time 33 SECONDS (22-32) H Coagulation Comments Problem\Assessment\Plan # left ankle wound covered with necrotic tissue on vancomycin and Zosyn; pain management 10/15 patient had bedside I and D with Dr. Zambrano 10/17 wound culture with a strep agalactiae; switch antibiotic to ceftriaxone 10/[address] Avendaño infectious disease physician's recommendations 10/21 Dr. Avendaño ordered 2 g of Rocephin IV daily and metronidazole 500 mg b.i.d. with a recommendation of an additional three weeks of therapy- a midline IV was placed today # history of diabetes mellitus type 1 was found to be in DKA; treated per protocol this morning with IV fluid supplementation and insulin drip; anion gap has closed and is started on insulin Lantus; 10/14 due to the persistent nausea and vomiting patient reversed into DKA; patient is started back on IV fluids and IV insulin; she will need to stay on IV insulin till her nausea resolves 10/15 continue DKA management per protocol to persistent nausea; nausea seems to be improving and we will do the trial of nutrition; if nutrition tolerated patient can be taken off DKA protocol 10/16 off DKA protocol and start insulin Lantus 10/18 patient received 10 units of Lantus yesterday and since yesterday her sugars have been below 200s; that combined with the fact that she is still having some vomiting I will be watching her without Lantus for now until sugars worsened 10/19 patient is requiring minimal coverage and she has not received insulin Lantus in a couple of days 10/20 continues to be significantly improved 10/21 blood sugars are up trending started Lantus 10 units q.h.s. and 5 units of lispro after meals 10/22 blood sugar control is improved 10/24 blood sugar control continues to be improved # Persistent nausea; symptomatic treatment; gastroparesis? 10/16 improved significantly 10/19 resolved #Hypokalemia supplement per protocol 10/21 and a potassium replacement protocol 10/22 on the potassium replacement protocol #Anemia monitor Remained stable Discharge disposition possible rehab, case managing working on it DVT prophylaxis Lovenox Date of Service: October 24, 2024 Billing Provider: JOAQUÍN MCCARTHY DO Common Visit Codes: [id number] INP/OBS CARE(HIGH) JOAQUÍN MCCARTHY DO October 24, 2024 22:26
[2024-10-25] MEDS: potassium Cl 20 mEq SR tablet PO PRN (02:54)
[2024-10-25 06:00] VITALS: BP 127/68; PULSE 94; RESP 13; TEMP 98; O2SAT 97
[2024-10-25 06:10] LABS: BASOPHILS # (AUTO) 0.1 X10'3 (0-0.2); EOSINOPHILS # (AUTO) 0.2 X10'3 (0-0.9); EOSINOPHILS % (AUTO) 2.5 % (0-6); HEMATOCRIT 33.4 % (35.0-45.0); HEMOGLOBIN 11.2 g/dl (12.0-16.0); LYMPHOCYTES # (AUTO) 1.5 X10'3 (1.1-4.8); LYMPHOCYTES % (AUTO) 19.9 % (21-51); MEAN CORPUSCULAR HEMOGLOBIN 29.9 PG (27.0-31.0); MEAN CORPUSCULAR HGB CONC 33.4 g/dL (33.0-36.5); MEAN CORPUSCULAR VOLUME 89.6 FL (78-98); MEAN PLATELET VOLUME 7.2 FL (7.4-10.4); MONOCYTES # (AUTO) 1.1 X10'3 (0-0.9); MONOCYTES % (AUTO) 14.5 % (2-12); NEUTROPHILS # (AUTO) 4.6 X10'3 (1.8-7.7); NEUTROPHILS % (AUTO) 62.1 % (42-75); PLATELET COUNT 475 X10'3 (140-440); RED BLOOD COUNT 3.73 X10'6 (4.20-5.60); RED CELL DISTRIBUTION WIDTH 14.1 % (11.5-14.5); WHITE BLOOD COUNT 7.5 X10'3 (4.5-11.0)
[2024-10-25 06:31] LABS: ALANINE AMINOTRANSFERASE 25 U/L (12-78); ALBUMIN 1.9 G/DL (3.4-5.0); ALBUMIN/GLOBULIN RATIO 0.5 (1.1-1.5); ALKALINE PHOSPHATASE 81 IU/L (46-116); ANION GAP 6 (8-16); ASPARTATE AMINO TRANSFERASE 23 U/L (10-37); BILIRUBIN,TOTAL 0.4 MG/DL (0.1-1.0); BLOOD UREA NITROGEN 2 MG/DL (7-18); BUN/CREATININE RATIO 4.3 (10.0-20.0); CALCIUM 8.2 MG/DL (8.5-10.1); CHLORIDE 104 MMOL/L (99-107); CREATININE 0.46 MG/DL (0.40-0.90); GLUCOSE 115 MG/DL (70-104); MAGNESIUM 1.7 MG/DL (1.5-2.4); POTASSIUM 3.7 MMOL/L (3.5-5.1); SODIUM 137 MMOL/L (135-145); TOTAL CARBON DIOXIDE 27.4 MMOL/L (24-32); TOTAL PROTEIN 5.7 G/DL (6.4-8.2); eCRCL 146 ML/MIN; eGFR > 90 ML/MIN
[2024-10-25 10:00] VITALS: BP 126/74; PULSE 99; RESP 18; TEMP 98.4; O2SAT 100
[2024-10-25] MEDS: ARGININE/GLUTAMINE/CALCIUM BMB (JUVEN 19.3GM PKT) 1 EACH POWD.PACK PO SCH (12:30)
[2024-10-25 18:30] VITALS: BP 134/74; PULSE 97; RESP 18; TEMP 98.1; O2SAT 97
[2024-10-25 20:00] VITALS: RESP 16; O2SAT 97
[2024-10-25] MEDS ORDERED: metoclopramide 5 mg/ml inj IV PRN (20:00)
[2024-10-25 22:00] VITALS: BP 125/69; PULSE 96; RESP 16; TEMP 98.2; O2SAT 98
--- NOTE | 2024-10-25 23:01 | PROGRESS NOTE ---
Daily Progress Note Providers to CC ~ Antibiotic Timeout Antibiotic Ordered?: Yes Subjective The patient is resting comfortably in bed and had no acute complaints the patient's blood sugars remained stable she did have one blood sugar that was 200 the rest has been in the 100s all day Objective Vital Signs Date Time Temp Pulse Resp B/P (MAP) Pulse Ox O2 Delivery O2 Flow Rate FiO2 10/25/24 22:00 98.2 96 16 125/69 (87) 98 Room Air 10/25/24 08:30 0.0 Result Diagram: 10/25/24 0450 10/25/24 045 Gen. No acute distress alert and oriented 4 Lungs clear to ascultation bilaterally, no wheezes rales or rhonchi appreciated Heart normal sinus rhythm no murmurs rubs or clicks noted Abdomen soft nontender bowel sounds are normoactive Lower extremities no clubbing cyanosis, nor edema appreciated bilaterally, dressing is in place on the left Coagulation Studies Laboratory Tests Test 10/12/24 20:53 Prothrombin Time 10.9 SECONDS (9.0-12.0) INR International Normalized Ratio 1.1 INR Activated Partial Thromboplast Time 33 SECONDS (22-32) H Coagulation Comments Problem\Assessment\Plan # left ankle wound covered with necrotic tissue on vancomycin and Zosyn; pain management 10/15 patient had bedside I and D with Dr. Zambrano 10/17 wound culture with a strep agalactiae; switch antibiotic to ceftriaxone 10/[address] Avendaño infectious disease physician's recommendations 10/21 Dr. Avendaño ordered 2 g of Rocephin IV daily and metronidazole 500 mg b.i.d. with a recommendation of an additional three weeks of therapy- a midline IV was placed today # history of diabetes mellitus type 1 was found to be in DKA; treated per protocol this morning with IV fluid supplementation and insulin drip; anion gap has closed and is started on insulin Lantus; 10/14 due to the persistent nausea and vomiting patient reversed into DKA; patient is started back on IV fluids and IV insulin; she will need to stay on IV insulin till her nausea resolves 10/15 continue DKA management per protocol to persistent nausea; nausea seems to be improving and we will do the trial of nutrition; if nutrition tolerated patient can be taken off DKA protocol 10/16 off DKA protocol and start insulin Lantus 10/18 patient received 10 units of Lantus yesterday and since yesterday her sugars have been below 200s; that combined with the fact that she is still having some vomiting I will be watching her without Lantus for now until sugars worsened 10/19 patient is requiring minimal coverage and she has not received insulin Lantus in a couple of days 10/20 continues to be significantly improved 10/21 blood sugars are up trending started Lantus 10 units q.h.s. and 5 units of lispro after meals 10/22 blood sugar control is improved 10/24 blood sugar control continues to be improved 10/25 control remains significantly improved # Persistent nausea; symptomatic treatment; gastroparesis? 10/16 improved significantly 10/19 resolved #Hypokalemia supplement per protocol 10/21 and a potassium replacement protocol 10/22 on the potassium replacement protocol #Anemia monitor Remained stable Discharge disposition possible rehab, case managing working on it DVT prophylaxis Lovenox Date of Service: October 25, 2024 Billing Provider: JOAQUÍN MCCARTHY DO Common Visit Codes: [id number] INP/OBS CARE(HIGH) JOAQUÍN MCCARTHY DO October 25, 2024 23:01
[2024-10-26 06:00] VITALS: BP 131/91; PULSE 75; RESP 16; TEMP 97.6; O2SAT 99
[2024-10-26 11:00] VITALS: BP 128/75; PULSE 75; RESP 18; TEMP 97.3; O2SAT 98
[2024-10-26 18:00] VITALS: BP 153/77; PULSE 92; RESP 17; TEMP 98.6; O2SAT 99
[2024-10-26 20:00] VITALS: RESP 18; O2SAT 97
--- NOTE | 2024-10-26 21:26 | PROGRESS NOTE ---
Daily Progress Note Providers to CC ~ Antibiotic Timeout Antibiotic Ordered?: Yes Subjective The patient is took a shower today and her hair was quite matted I actually assisted in removing the last strands that were not it and I teased out as much hairs I could. The patient has has no acute medical complaints concerns blood sugars are controlled Objective Vital Signs Date Time Temp Pulse Resp B/P (MAP) Pulse Ox O2 Delivery O2 Flow Rate FiO2 10/26/24 11:00 97.3 75 18 128/75 (92) 98 Room Air 10/26/24 08:00 0.0 Result Diagram: 10/25/2444910/25/24449 Gen. No acute distress alert and oriented 4 Lungs clear to ascultation bilaterally, no wheezes rales or rhonchi appreciated Heart normal sinus rhythm no murmurs rubs or clicks noted Abdomen soft nontender bowel sounds are normoactive Lower extremities no clubbing cyanosis, nor edema appreciated bilaterally, dressing is in place on the left Coagulation Studies Laboratory Tests Test 10/12/24 20:53 Prothrombin Time 10.9 SECONDS (9.0-12.0) INR International Normalized Ratio 1.1 INR Activated Partial Thromboplast Time 33 SECONDS (22-32) H Coagulation Comments Problem\Assessment\Plan # left ankle wound covered with necrotic tissue on vancomycin and Zosyn; pain management 10/15 patient had bedside I and D with Dr. Zambrano 10/17 wound culture with a strep agalactiae; switch antibiotic to ceftriaxone 10/[address] Avendaño infectious disease physician's recommendations 10/21 Dr. Avendaño ordered 2 g of Rocephin IV daily and metronidazole 500 mg b.i.d. with a recommendation of an additional three weeks of therapy- a midline IV was placed today 10/26 antibiotic stop date is November 11, 2024- wound VAC was changed today # history of diabetes mellitus type 1 was found to be in DKA; treated per protocol this morning with IV fluid supplementation and insulin drip; anion gap has closed and is started on insulin Lantus; 10/14 due to the persistent nausea and vomiting patient reversed into DKA; patient is started back on IV fluids and IV insulin; she will need to stay on IV insulin till her nausea resolves 10/15 continue DKA management per protocol to persistent nausea; nausea seems to be improving and we will do the trial of nutrition; if nutrition tolerated patient can be taken off DKA protocol 10/16 off DKA protocol and start insulin Lantus 10/18 patient received 10 units of Lantus yesterday and since yesterday her sugars have been below 200s; that combined with the fact that she is still having some vomiting I will be watching her without Lantus for now until sugars worsened 10/19 patient is requiring minimal coverage and she has not received insulin Lantus in a couple of days 10/20 continues to be significantly improved 10/21 blood sugars are up trending started Lantus 10 units q.h.s. and 5 units of lispro after meals 10/22 blood sugar control is improved 10/24 blood sugar control continues to be improved 10/25 control remains significantly improved # Persistent nausea; symptomatic treatment; gastroparesis? 10/16 improved significantly 10/19 resolved #Hypokalemia supplement per protocol 10/21 and a potassium replacement protocol 10/22 on the potassium replacement protocol #Anemia monitor Remaines stable Discharge disposition possible rehab, case managing working on it DVT prophylaxis Lovenox Date of Service: October 26, 2024 Billing Provider: JOAQUÍN MCCARTHY DO Common Visit Codes: [id number] INP/OBS CARE(HIGH) JOAQUÍN MCCARTHY DO October 26, 2024 21:26
[2024-10-26 22:52] VITALS: BP 133/70; PULSE 109; RESP 18; TEMP 98.4; O2SAT 98
[2024-10-27 05:13] LABS: MAGNESIUM 1.8 MG/DL (1.5-2.4); POTASSIUM 3.6 MMOL/L (3.5-5.1)
[2024-10-27 06:00] VITALS: BP 148/79; PULSE 90; RESP 14; TEMP 98.1; O2SAT 98
[2024-10-27 08:00] VITALS: RESP 17; O2SAT 98
--- NOTE | 2024-10-27 10:12 | PROGRESS NOTE ---
Progress Note Ortho Ortho Post Op Day #: Other Progress Note patient seen this morning and overall doing well, no new complaints noted ROS ROS No new complaints Exam Exam: Alert and Oreinted x4, Appropriate, Vital signs are stable, In no acute distress, Dressing clean and dry Exam Comments vac intact Problem/Assessment/Plan Assessment\Plan: Doing Well, Cont. Physicial Therapy, Anticipate disch to rehab Additional Plan doing well, will continue to monitor for wound healing. Recommend the vac to be continued, patient will follow up with me in clinic, anticipate discharge to a rehab facility, awaiting placement Results/Orders Result Diagram: 10/25/24 0450 10/27/24 0441 PAMELA VELASCO DPM October 27, 2024 10:12
--- NOTE | 2024-10-27 11:40 | DISCHARGE SUMMARY ---
Discharge Summary Providers to CC ~ Discharge Summary Admission Diagnosis: left ankle cellulitis/DKA Hospital Course DATE OF ADMISSION: 10/12/2024 DATE OF DISCHARGE: 10/27/2024 Discharge Diagnosis\\Comment: Left ankle severe diabetic foot infection, DKA/ type 1 diabetes, possible gastroparesis, hypokalemia Operations\\Procedures: Right foot I and D Consultants: Perioperative Tech Dr. Olegario Zambrano/ Dr. Joao Ureña, infectious Disease Dr. Shaquille Stephenson Complications: None Condition on DC: Stable for transfer Discharge Summary: Patient was admitted by resident physician VIELKA Elizondo under the supervision of BECKA Howe MD with the following HPI:"The 43-year-old female was transferred from [facility] for higher level of care for the management of left ankle cellulitis. Her friend at the bedside. She mentioned that she started throwing up since last night. Did not notice any blood in it. She also complains of chronic lower abdominal pain. She also has a wound on the lateral surface of left foot. She said she fell about three weeks back and the wound started as a small abrasion which gradually got worse. Now, it is painful, erythematous and also has a necrotic center. Used an antibiotic for the last four days as provided in the ER at [facility]. She is unsure about the name of the medication. She went to [facility] again earlier today after she developed vomitings.. Her bicarb was 11, glucose 376 and urine analysis showed elevated specific gravity and 4+ ketones. She is a known diabetic patient and is not on any medications. She received 10 units insulin regular subQ and 2 L of normal saline boluses at the outside hospital. She was then transferred to [facility] in suspicion of left foot osteomyelitis. Here in the ER, her bicarb 15.1, anion gap 19. She denies any chest pain, shortness of breath, dysuria, constipation or diarrhea. She denies having any PCP and states that she is homeless. Not on any medications at home. Has been smoking one pack of cigarettes per day since she was 18 years and smokes marijuana daily."The patient was treated with IV Rocephin and IV vancomycin - patient was evaluated by Podiatry Dr. Olegario Zambrano who performed an I&D- wound cultures grew out group B strep- Dr. Shaquille stephenson evaluated the patient and recommended IV Rocephin 2 g daily and p.o. metronidazole on the 20 of October and recommended three weeks of IV antibiotics going forward with a stop date of 11/12/2024 the patient had wound care as well and has a wound VAC in place. Patient has a type 1 diabetic and was in DKA which resolved by the the patient then is treated with the Lantus night as well as PC scheduled lispro insulin and sliding scale insulin and all blood sugars became controlled on the evening of the . The patient had possible gastroparesis early on however this resolved and the patient was tolerating food without any further episodes the seven days I evaluated the patient. The patient does have hypokalemia was on potassium replacement protocol. Gen. No acute distress alert and oriented 4 Lungs clear to ascultation bilaterally, no wheezes rales or rhonchi appreciated Heart normal sinus rhythm no murmurs rubs or clicks noted Abdomen soft nontender bowel sounds are normoactive Lower extremities no clubbing cyanosis, nor edema appreciated bilaterally, dressing is in place on the left as well as a wound VAC tubing is present connected to a wound VAC The patient was seen and evaluated on the day of transferred to [facility] on the morning of 10/27/2024 and 40 minutes was spent on discharging the patient The patient is to follow up with Dr. Zambrano in two weeks- antibiotics are anticipated to be completed on the and the patient is we will be receiving wound care and wound VAC management at [facility]. *Problems/Diagnosis: (1) Ulcer Status: Acute Total Time Spent on D/C: > 30 Minutes Date of Service: October 27, 2024 Billing Provider: JOAQUÍN MCCARTHY DO Common Visit Codes: [id number] DISCH DAY >30min JOAQUÍN MCCARTHY DO October 27, 2024 11:34
[2024-10-27 14:38] VITALS: BP 129/67; PULSE 96; RESP 16; TEMP 98; O2SAT 98
[2024-10-27 18:00] VITALS: BP 121/70; PULSE 92; RESP 16; TEMP 98.6; O2SAT 92
--- NOTE | 2024-10-27 20:36 | PROGRESS NOTE ---
Daily Progress Note Providers to CC ~ Antibiotic Timeout Antibiotic Ordered?: Yes Subjective I had informed the patient that she has been accepted to [facility] post acute rehab however the facilities did not realize that the patient has a wound VAC and thus refused to accept the patient. Objective Vital Signs Date Time Temp Pulse Resp B/P (MAP) Pulse Ox O2 Delivery O2 Flow Rate FiO2 10/27/24 14:38 98.0 96 16 129/67 (87) 98 Room Air 10/26/24 22:52 0.0 Result Diagram: 10/25/24 0450 10/27/24 0441 Gen. No acute distress alert and oriented 4 Lungs clear to ascultation bilaterally, no wheezes rales or rhonchi appreciated Heart normal sinus rhythm no murmurs rubs or clicks noted Abdomen soft nontender bowel sounds are normoactive Lower extremities no clubbing cyanosis, nor edema appreciated bilaterally, dressing for wound VAC is in place on the left Coagulation Studies Laboratory Tests Test 10/12/24 20:53 Prothrombin Time 10.9 SECONDS (9.0-12.0) INR International Normalized Ratio 1.1 INR Activated Partial Thromboplast Time 33 SECONDS (22-32) H Coagulation Comments Problem\Assessment\Plan Problems/Diagnosis: (1) Ulcer # left ankle wound covered with necrotic tissue on vancomycin and Zosyn; pain management 10/15 patient had bedside I and D with Dr. Zambrano 10/17 wound culture with a strep agalactiae; switch antibiotic to ceftriaxone 10/[address] Avendaño infectious disease physician's recommendations 10/21 Dr. Avendaño ordered 2 g of Rocephin IV daily and metronidazole 500 mg b.i.d. with a recommendation of an additional three weeks of therapy- a midline IV was placed today 10/26 antibiotic stop date is November 11, 2024- wound VAC was changed today # history of diabetes mellitus type 1 was found to be in DKA; treated per protocol this morning with IV fluid supplementation and insulin drip; anion gap has closed and is started on insulin Lantus; 10/14 due to the persistent nausea and vomiting patient reversed into DKA; patient is started back on IV fluids and IV insulin; she will need to stay on IV insulin till her nausea resolves 10/15 continue DKA management per protocol to persistent nausea; nausea seems to be improving and we will do the trial of nutrition; if nutrition tolerated patient can be taken off DKA protocol 10/16 off DKA protocol and start insulin Lantus 10/18 patient received 10 units of Lantus yesterday and since yesterday her sugars have been below 200s; that combined with the fact that she is still having some vomiting I will be watching her without Lantus for now until sugars worsened 10/19 patient is requiring minimal coverage and she has not received insulin Lantus in a couple of days 10/20 continues to be significantly improved 10/21 blood sugars are up trending started Lantus 10 units q.h.s. and 5 units of lispro after meals 10/22 blood sugar control is improved 10/24 blood sugar control continues to be improved 10/25 control remains significantly improved # Persistent nausea; symptomatic treatment; gastroparesis? 10/16 improved significantly 10/19 resolved #Hypokalemia supplement per protocol 10/21 and a potassium replacement protocol 10/22 on the potassium replacement protocol #Anemia monitor Remaines stable Discharge disposition possible rehab, case managing working on it DVT prophylaxis Lovenox Date of Service: October 27, 2024 Billing Provider: JOAQUÍN MCCARTHY DO Common Visit Codes: [id number] INP/OBS CARE(MOD) JOAQUÍN MCCARTHY DO October 27, 2024 20:36
[2024-10-27 22:00] VITALS: BP 127/69; PULSE 90; RESP 16; TEMP 98.1; O2SAT 98
[2024-10-28 06:00] VITALS: BP 129/71; PULSE 65; RESP 14; TEMP 98.1; O2SAT 97
[2024-10-28 09:00] VITALS: RESP 16; O2SAT 97
[2024-10-28 10:00] VITALS: BP 141/73; PULSE 89; RESP 16; TEMP 98.2; O2SAT 97
[2024-10-28 12:53] VITALS: RESP 18
--- NOTE | 2024-10-28 19:20 | DISCHARGE SUMMARY ---
Discharge Summary Providers to CC ~ Discharge Summary Admission Diagnosis: left ankle cellulitis/DKA Hospital Course DATE OF ADMISSION: 10/12/2024 DATE OF DISCHARGE: 10/28/2024 Discharge Diagnosis\\Comment: Left ankle severe diabetic foot infection, DKA/ type 1 diabetes, possible gastroparesis, hypokalemia Operations\\Procedures: Right foot I and D Consultants: Rn Chemical Dependency Dr. Olegario Zambrano/ Dr. Joao Ureña, infectious Disease Dr. Shaquille Stephenson Complications: None Condition on DC: Stable for transfer Discharge Summary: Patient was admitted by resident physician VIELKA Elizondo under the supervision of BECKA Howe MD with the following HPI:"The 43-year-old female was transferred from [facility] for higher level of care for the management of left ankle cellulitis. Her friend at the bedside. She mentioned that she started throwing up since last night. Did not notice any blood in it. She also complains of chronic lower abdominal pain. She also has a wound on the lateral surface of left foot. She said she fell about three weeks back and the wound started as a small abrasion which gradually got worse. Now, it is painful, erythematous and also has a necrotic center. Used an antibiotic for the last four days as provided in the ER at [facility]. She is unsure about the name of the medication. She went to [facility] again earlier today after she developed vomitings.. Her bicarb was 11, glucose 376 and urine analysis showed elevated specific gravity and 4+ ketones. She is a known diabetic patient and is not on any medications. She received 10 units insulin regular subQ and 2 L of normal saline boluses at the outside hospital. [facility] of [facility] foot osteomyelitis. Here in the ER, her bicarb 15.1, anion gap 19. She denies any chest pain, shortness of breath, dysuria, constipation or diarrhea. She denies having any PCP and states that she is homeless. Not on any medications at home. Has been smoking one pack of cigarettes per day since she was 18 years and smokes marijuana daily."The patient was treated with IV Rocephin and IV vancomycin - patient was evaluated by Podiatry Dr. Olegario Zambrano who performed an I&D- wound cultures grew out group B strep- Dr. Shaquille stephenson evaluated the patient and recommended IV Rocephin 2 g daily and p.o. metronidazole on the 20 of October and recommended three weeks of IV antibiotics going forward with a stop date of 11/12/2024 the patient had wound care as well and has a wound VAC in place. Patient has a type 1 diabetic and was in DKA which resolved by the the patient then is treated with the Lantus night as well as PC scheduled lispro insulin and sliding scale insulin and all blood sugars became controlled on the evening of the . The patient had possible gastroparesis early on however this resolved and the patient was tolerating food without any further episodes the seven days I evaluated the patient. The patient does have hypokalemia was on potassium replacement protocol. Gen. No acute distress alert and oriented 4 Lungs clear to ascultation bilaterally, no wheezes rales or rhonchi appreciated Heart normal sinus rhythm no murmurs rubs or clicks noted Abdomen soft nontender bowel sounds are normoactive Lower extremities no clubbing cyanosis, nor edema appreciated bilaterally, dressing is in place on the left as well as a wound VAC tubing is present connected to a wound VAC Note that the patient was unable to be transferred to [facility] on the there was an administrative issue in regards to the patient's wound VAC this issue was cleared up on the and the patient was transferred in the [facility] on of the . There was no changes in the patient's condition on the and the patient's blood sugars were controlled other than the 12:42 blood sugar of 225. The patient was seen and evaluated on the day of transferred to [facility] on the morning of 10/28/2024 and 40 minutes was spent on discharging the patient The patient is to follow up with Dr. Zambrano in two weeks- antibiotics are anticipated to be completed on the and the patient is we will be receiving wound care and wound VAC management at [facility]. *Problems/Diagnosis: (1) Ulcer Status: Acute Total Time Spent on D/C: > 30 Minutes Date of Service: October 28, 2024 Billing Provider: JOAQUÍN MCCARTHY DO Common Visit Codes: [id number]/OBS DISCH DAY >30min JOAQUÍN MCCARTHY DO October 28, 2024 19:20
== END 2024-10-28 13:00 | disposition swing bed (61) | DRG 710 ==
LOC: ER 16:28 → ED HOLD 20:31 → UNDOADMIN 20:31 → ED HOLD 23:32 → PCU 3S 10-13 01:17 → ED HOLD 10-13 01:17 → SUR 3N 10-17 14:57
PROVIDERS: ADMIT Internal Medicine Critical Care Medicine; ATTEND Internal Medicine
PROC: 0J9Q0ZZ Drainage of Right Foot Subcutaneous Tissue and Fascia, Open Approach (ICD-10-PCS; principal; 2024-10-14)
PROC: 0JBR0ZZ Excision of Left Foot Subcutaneous Tissue and Fascia, Open Approach (ICD-10-PCS; 2024-10-20)
PROC: 05HY33Z Insertion of Infusion Device into Upper Vein, Percutaneous Approach (ICD-10-PCS; 2024-10-26)
PROC: B54MZZA Ultrasonography of Right Upper Extremity Veins, Guidance (ICD-10-PCS; 2024-10-26)
DX: A41.9 Sepsis, unspecified organism (principal); E43 Unspecified severe protein-calorie malnutrition; E10.10 Type 1 diabetes mellitus with ketoacidosis without coma; L03.116 Cellulitis of left lower limb; E10.52 Type 1 diabetes mellitus with diabetic peripheral angiopathy with gangrene; E87.6 Hypokalemia; D64.9 Anemia, unspecified; K31.84 Gastroparesis; E10.43 Type 1 diabetes mellitus with diabetic autonomic (poly)neuropathy; F17.210 Nicotine dependence, cigarettes, uncomplicated; Z68.22 Body mass index [BMI] 22.0-22.9, adult; Z59.00 Homelessness unspecified; Z88.6 Allergy status to analgesic agent; Z91.09 Other allergy status, other than to drugs and biological substances; Z91.148 Patient's other noncompliance with medication regimen for other reason; Z90.49 Acquired absence of other specified parts of digestive tract; Z79.4 Long term (current) use of insulin
CPT/HCPCS: 36410; 36415; 36600; 73610; 76942; 80048; 80053; 80061; 80202; 82009; 82010; 82803; 82948; 83036; 83605; 83735; 84100; 84132; 84145; 85018; 85025; 85610; 85651; 85730; 86140; 87040; 87070; 87075; 87077; 87081; 87186; 93005; 96365; 96375; 97110; 97116; 97162; 97530; 97535; 99285; A4649; A6196; A6223; A6253; A6446; A6449; C1751; G0378; J0360; J0696; J0780; J1171; J1650; J1815; J2405; J2543; J2765; J3370; J3372; J3480; J3490; J7030; J7040; J7042; J7060; J7070; J7120; Q0169